=== PATIENT | female | born 1985 | race Caucasian/White ===

== ENCOUNTER 2022-03-28 16:56 | Inpatient (IN) ==
[2022-03-28] MEDS ORDERED: LIDOCAINE 1% LOCAL 20 ML VIAL INFIL PRN (17:22)
[2022-03-28] MEDS ORDERED: OXYTOCIN 30 UNITS/500 ML BAG IV PRN ×2 (17:22→18:22)
[2022-03-28 17:51] LABS: Hematocrit (blood only) 32.9 % (34.1-44.9); Hemoglobin 11.3 g/dl (12.0-16.0); Mean Corpuscular Hemoglobin 30.1 pg (25.0-34.0); Mean Corpuscular Hgb Conc 34.3 g/dL (32.0-36.0); Mean Corpuscular Volume 87.7 fL (80.0-100.0); Mean Platelet Volume 12.7 fL (9.4-12.3); Platelet Count 203 K/uL (130-400); RDW Coefficient of Variation 12.9 % (11.5-14.5); RDW Standard Deviation 40.1 fL (36.4-46.3); Red Blood Count 3.75 M/uL (3.93-5.22)
[2022-03-28] MEDS ORDERED: INSULIN REGULAR 250 UNITS in SODIUM CHLORIDE 0.9% 247.5 ML IV PRN (18:22)
[2022-03-28] MEDS ORDERED: SODIUM CHLORIDE 0.9% 1000ML 1,000 ML IV PRN (18:22)
[2022-03-28] MEDS ORDERED: DEXTROSE 5% 1,000 ML IV PRN (18:22)
[2022-03-28] MEDS ORDERED: DEXTROSE 50% 50 ML SYRINGE IV PRN (18:22)
[2022-03-28] MEDS: LACTATED RINGER'S 1,000 ML IV PRN ×2 (19:12→23:54)
--- NOTE | 2022-03-28 19:16 | History & Physical Report ---
Date of Service March 28, 2022 Assessment & Plan (1) Diabetes type 1, uncontrolled: (2) Diabetes mellitus affecting : Plan 36 y/o G1 at 39 4/7 wga presents for IOL [id number] VSS Fetus cat 1 Labor - will start with pit hilario, 35cc hilario placed after consent obtained. T1DM - due to being T1 and not on continuous pump, will start insulin protocol GBS neg epidural prn Admission and Anticipated Discharge Date Admission Date: March 28, 2022 History of Present Illness Chief Complaint: IOL Primary Care Provider: Eric Culp DO 36 y/o G1 at 39 4/7 wga presents for IOL for T1DM. 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: G1 09/2019 neg cytology Denies hx STIs Allergies Allergy/AdvReac Type Severity Reaction Status Date / Time No Known Allergies Allergy Verified 03/27/22 15:34 Home Medications Medication Instructions Recorded Confirmed Type glucagon HCl 1 mg solution for 1 mg IM UD PRN Emergency 02/04/21 03/28/22 History injection (Glucagon (HCl) Emergency Kit) blood-glucose sensor (Dexcom G6 #1 ea 03/22/21 03/27/22 Rx Sensor device) insulin aspart U-100 100 unit/mL See Rx Instructions subcut 06/26/21 03/28/22 Rx (3 mL) subcutaneous pen .complex #30 mL prenat.vits,ramon,[id number] 1 tab PO DAILY 08/09/21 03/28/22 History aspirin 81 mg tablet,delayed 81 mg PO DAILY 11/08/21 03/28/22 History release blood sugar diagnostic (OneTouch See Rx Instructions .Route 01/07/22 03/28/22 Rx Ultra Test strips) .COMPLEX #400 strips omeprazole 20 mg tablet,delayed 20 mg PO DAILY 02/06/22 03/28/22 History release insulin detemir U-100 100 unit/mL 60 unit (0.6 mL) subcut ONCE #15 mL 02/21/22 03/28/22 Rx (3 mL) subcutaneous pen (Levemir FlexTouch U-100 Insulin) pen needle, diabetic 32 gauge x 03/06/22 03/27/22 History 5/32" (BD Ailin 2nd Gen Pen Needle) Patient History Medical History Benign nevus Diabetes type 1, uncontrolled Diabetic ketoacidosis Diabetic peripheral neuropathy associated with type 1 diabetes mellitus Dysesthesia Epidermal inclusion cyst History of HPV infection Surgical History H/O LEEP H/O oral surgery Family History Aunt Breast cancer Sister Biliary atresia Mother Ovarian cyst Denies family history of Ovarian cancer Prostate cancer Diabetes Myocardial infarction Colorectal cancer Hypertension Social History (Updated 02/21/22 @ 13:59 by FALLON Horne) Smoking Status: Never smoker Second Hand Exposure: No; Hx Alcohol Use: No Hx Substance Use: No Preferred Language: [place] Irish Communication Ability: Effective Visual Impairment: No Limitations Hearing Ability: Normal Taproom Attendant Required: No Beliefs That Will Affect Care: None marital status: marital status details: Jermaine Torres (28) [phone] Current Living Situation: Spouse Current Living Situation Comment: - Jermaine current occupational status: employed 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 Feels Safe at Home: Yes Safety Concerns: Feels Safe At This Time Childhood Exposure to Second-Hand Smoke: No caffeine: No Dental Care, Regularly: Yes Physical Activity Frequency: Does not Exercise Seatbelt Use: sometimes Sunscreen Use: Yes Do you think of yourself as: straight/heterosexual Gender Identity: Female Assistive Devices: Glasses Physical Exam Genitourinary: OB Exam Abdomen: + vertex (confirmed by bsus) and + estimated weight (7-8lbs) Manual OB Exam: + cervical dilation 1 cm, + cervical effacement 50% and + station -2 OB Exam Monitor Tracing: + external FHT monitor used, + external uterine monitor used (irreg ctx) and + category I (135/mod/+accel/-decel) Results & Data ([facility]) Vital Signs (Past 12 Hours) Vital Signs Temp Pulse Resp BP O2 Del Method 03/28/22 17:23 98.1 F 94 H 18 116/75 Room Air 03/28/22 16:59 18 03/28/22 16:59 98.1 F 18 03/28/22 17:00 94 H 116/75 Laboratory Results Lab Results OB Labs: Blood Type A Positive 08/15/21 Antibody Screen NEGATIVE 08/15/21 Hemoglobin 12.3 g/dL (12.0-16.0) 08/15/21 Hematocrit 37.0 % (37-47) 08/15/21 Mean Corpuscular Volume 88.9 fL (80-100) 08/15/21 Platelet Count 403 K/uL (130-400) H 08/15/21 Rubella IgG Antibody Immune (Immune) 08/15/21 Rapid Plasma Reagin Nonreactive (Nonreactive) 08/15/21 Hepatitis B Surface Antigen Neg (Neg) 08/15/21 Hepatitis C Antibody Neg (Neg) 08/15/21 HIV (1&2) Ab and P24 Ag, 4th Gener Neg (Neg) 08/15/21 Maternal Serum Alpha Fetoprotein 23.2 ng/mL 10/10/21 OB Optional Labs: Chlamydia trachomatis RNA NOT DETECTED (NOT DETECTED) 08/15/21 Neisseria gonorrhoeae RNA NOT DETECTED (NOT DETECTED) 08/15/21 Thyroid Stimulating Hormone (TSH) 1.213 uIu/ml (0.300-4.500) 11/08/21 Alpha Fetoprotein Triple Screen SEE NOTE 10/10/21 Labs Reviewed: Declines csf/sma--mln Cfdna-low risk--mln gbs neg Diagnostic Findings 03/03 EFW 60% Coding Level of Care Code None Diagnoses Diabetes type 1, uncontrolled E10.65 Diabetes mellitus affecting O24.919
[2022-03-28] MEDS ORDERED: ePHEDrine sulfate 50 MG/ML AMP ONE (23:39)
[2022-03-28] MEDS ORDERED: fentaNYL 2MCG/ML ROPIVACAINE 1.25MG/ML 100 ML BAG EPI ONE (23:40)
[2022-03-28] MEDS ORDERED: fentaNYL citrate 100 MCG/2 ML VIAL ONE (23:40)
[2022-03-28] MEDS ORDERED: LIDOCAINE 2%/EPINEPHRINE 1:200,000 20 ML SDV ONE (23:40)
[2022-03-28] MEDS ORDERED: BUPIVACAINE 0.25% 30 ML VIAL ONE (23:40)
[2022-03-28] MEDS ORDERED: SODIUM CHLORIDE 0.9% INJ 10 ML VIAL ONE (23:40)
[2022-03-28] MEDS ORDERED: NALBUPHINE HCL INJ 10 MG/ML AMP IV PRN (23:48)
[2022-03-28] MEDS ORDERED: diphenhydrAMINE 50 MG/ML VIAL IV PRN (23:48)
[2022-03-28] MEDS ORDERED: NALOXONE HCL 0.4 MG/1 ML VIAL/CARP IV PRN (23:48)
[2022-03-28] MEDS ORDERED: ONDANSETRON INJ 2 MG/ML 2 ML VIAL IV PRN (23:48)
[2022-03-28] MEDS ORDERED: NALOXONE HCL 1 MG in SODIUM CHLORIDE 0.9% 1000ML 1,000 ML IV PRN (23:48)
[2022-03-28] MEDS ORDERED: ePHEDrine sulfate 50 MG/ML AMP IV PRN (23:48)
--- NOTE | 2022-03-28 23:50 | Anesthesiology Consultation ---
Date of Service March 28, 2022 Assessment & Plan Chart Review Chart Review: Patient NOT seen in Pre Admission Testing and Acceptable Risk for Labor Epidural Consults Requested none ASA ASA2 Proposed Anesthesia Anesthesia Type: Labor Epidural and CSE Risk / Benefits Reviewed With: PT / POA / Parent / Guardian, Accepts Plan and Informed Consent Obtained History Height/Weight Height: 5 ft 7 in Weight: 81.193 kg Allergies Allergy/AdvReac Type Severity Reaction Status Date / Time No Known Allergies Allergy Verified 03/27/22 15:34 Medications Home Medications Medication Instructions Recorded Confirmed Last Taken glucagon HCl 1 mg solution for 1 mg IM UD PRN Emergency 02/04/21 03/28/22 Unknown injection (Glucagon (HCl) Emergency Kit) blood-glucose sensor ([employer] G6 #1 ea 03/22/21 03/27/22 Unknown Sensor device) insulin aspart U-100 100 unit/mL See Rx Instructions subcut 06/26/21 03/28/22 03/28/22 14:30 (3 mL) subcutaneous pen .complex #30 mL prenat.vits,ramon,[id number] 1 tab PO DAILY 08/09/21 03/28/22 03/28/22 07:00 aspirin 81 mg tablet,delayed 81 mg PO DAILY 11/08/21 03/28/22 03/28/22 07:00 release blood sugar diagnostic (OneTouch See Rx Instructions .Route 01/07/22 03/28/22 08:00 Ultra Test strips) .COMPLEX #400 strips omeprazole 20 mg tablet,delayed 20 mg PO DAILY 02/06/22 03/28/22 03/28/22 07:00 release insulin detemir U-100 100 unit/mL 60 unit (0.6 mL) subcut ONCE #15 mL 02/21/22 03/28/22 03/28/22 07:00 (3 mL) subcutaneous pen (Levemir FlexTouch U-100 Insulin) pen needle, diabetic 32 gauge x 03/06/22 03/27/22 Unknown " (BD Ailin 2nd Gen Pen Needle) Active Medications Generic Name Dose Route Start Last Admin Trade Name Freq PRN Reason Stop Dose Admin Lactated Ringer's 1,000 mls @ 125 mls/hr 03/28/22 17:22 03/28/22 23:21 Lr IV 03/30/22 17:21 999 mls/hr .Q8H PRN Infusion L&D Protocol Protocol Oxytocin 30 units in 500 mls @ 8 mls/hr 03/28/22 18:22 03/28/22 23:20 Pitocin IV 03/30/22 18:21 0.6 units/hr .Q24H PRN 10 mls/hr Labor Induction/Augmentation Titration Protocol 0.48 UNITS/HR NPO Date Last Intake of Fluids: 03/28/22 Time Last Intake of Fluids: 20:00 Date Last Intake of Solids: 03/28/22 Time Last Intake of Solids: 18:00 Past Medical History Medical History Benign nevus Diabetes type 1, uncontrolled Diabetic ketoacidosis Diabetic peripheral neuropathy associated with type 1 diabetes mellitus Dysesthesia Epidermal inclusion cyst History of HPV infection Exercise / Class Metabolic Activity II 4-5 Yardwork/Stairs/Walk up hill Past Family History Family History Aunt Breast cancer Maternal Sister Biliary atresia Mother Ovarian cyst Denies family history of Ovarian cancer Prostate cancer Diabetes Myocardial infarction Colorectal cancer Hypertension Past Surgical History Surgical History H/O LEEP H/O oral surgery Past Anesthesia History No Hx of Anesthesia Complications and No Family Hx of Anesthesia Complications History of PONV No Hx of PONV and No Hx of Motion Sickness Social History Smoking Status: Never smoker Hx Alcohol Use: No Hx Substance Use: No substance use type: does not use Review of Systems no chest pain or sob Physical Exam Vital Signs Last Vital Signs Temp 36.9 C 03/28/22 23:02 Pulse 86 03/28/22 23:46 Resp 18 03/28/22 23:02 BP 110/62 03/28/22 23:03 Pulse Ox 100 03/28/22 23:46 O2 Del Method 03/28/22 17:23 ENMT Mouth: no TMJ abnormality Thyromental Distance: > or= 3.5 Finger Breadths Mallampati Class: II Neck normal visual inspection Respiratory normal respiratory effort Auscultation: lungs clear to auscultation bilaterally Cardiovascular Rate/Rhythm: regular rate and regular rhythm Musculoskeletal Spine: normal cervical ROM Neurologic moves all extremities Psychiatric Orientation: alert and oriented x 3 Testing Laboratory Results 03/28/22 17:37 03/28/22 03/28/22 03/28/22 23:05 23:04 22:03 POC Glucose 61 L* 66 L* 76 03/28/22 03/28/22 03/28/22 21:03 20:03 19:33 POC Glucose 76 77 69 L* 03/28/22 03/28/22 19:32 18:16 POC Glucose 67 L* 82
--- NOTE | 2022-03-29 01:10 | Labor Progress Brief Note ---
Date of Service March 29, 2022 Subjective hilario bulb out, pt w/ epidural and comfortable Assessment & Plan (1) Diabetes type 1, uncontrolled: (2) Diabetes mellitus affecting : Plan 36 y/o G1 at 39 4/7 wga presents for IOL [id number] VSS Fetus cat 1 Labor - continue pit induction T1DM - insulin protocol ordered, BG doing well GBS neg epidural in place Admission and Anticipated Discharge Date Admission Date: March 28, 2022 Physical Exam Genitourinary: Manual OB Exam: + cervical dilation 4 cm, + cervical effacement 50%, + station -2 and + amniotic fluid (SROM w/ mec) OB Exam Monitor Tracing: + external FHT monitor used, + external uterine monitor used (q3-4) and + category I (120/mod/+accel/-decel) Results & Data ([facility]) Vital Signs (Past 12 Hours) Vital Signs Temp Pulse Resp BP Pulse Ox O2 Del Method 03/28/22 17:23 98.1 F 94 H 18 116/75 Room Air 03/29/22 01:07 93 H 111/62 03/29/22 01:06 91 H 100 03/29/22 01:01 92 H 100 03/29/22 00:56 96 H 100 03/29/22 00:51 84 98 03/29/22 00:46 83 99 03/29/22 00:47 81 100/57 L 03/29/22 00:45 18 03/29/22 00:45 18 03/29/22 00:41 83 100 03/29/22 00:42 82 101/57 L 03/29/22 00:30 18 03/29/22 00:30 18 03/29/22 00:37 90 106/62 03/29/22 00:36 86 99 03/29/22 00:33 85 101/57 L 03/29/22 00:31 87 100 03/28/22 23:52 18 03/28/22 23:52 18 03/29/22 00:07 18 03/29/22 00:07 18 03/29/22 00:26 88 100 03/29/22 00:27 87 100/59 L 03/29/22 00:21 90 105/55 L 100 03/29/22 00:19 96 H 112/62 03/29/22 00:17 93 H 105/53 L 03/29/22 00:16 100 03/29/22 00:16 92 H 03/29/22 00:16 93 H 102/55 L 03/29/22 00:13 89 111/58 L 03/29/22 00:11 96 H 100 03/29/22 00:10 96 H 114/57 L 03/29/22 00:09 94 H 94 03/29/22 00:06 100 H 100 03/29/22 00:01 99 H 99 03/28/22 23:59 91 03/28/22 23:59 100 H 03/28/22 23:56 100 03/28/22 23:56 101 H 03/28/22 23:51 99 03/28/22 23:51 98 H 03/28/22 23:46 100 03/28/22 23:46 86 03/28/22 23:41 100 03/28/22 23:41 87 03/28/22 23:36 100 03/28/22 23:36 84 03/28/22 23:31 100 03/28/22 23:31 90 03/28/22 23:02 18 03/28/22 23:02 98.4 F 18 03/28/22 23:03 86 03/28/22 23:03 110/62 03/28/22 22:02 90 03/28/22 22:02 107/66 03/28/22 21:02 90 03/28/22 21:02 128/84 03/28/22 20:02 87 03/28/22 20:02 114/70 03/28/22 19:16 18 03/28/22 19:16 98.1 F 18 03/28/22 19:17 88 03/28/22 19:17 104/68 03/28/22 16:59 18 03/28/22 16:59 98.1 F 18 03/28/22 17:00 94 H 116/75 Coding Level of Care Code None Diagnoses Diabetes type 1, uncontrolled E10.65 Diabetes mellitus affecting O24.919
[2022-03-29] MEDS: LACTATED RINGER'S 1,000 ML IV PRN ×4 (02:45→13:19)
--- NOTE | 2022-03-29 07:32 | Labor Progress Brief Note ---
Date of Service March 29, 2022 Subjective Called by nursing due to low baseline. Had been given ephedrine due to maternal BP being low, moderate variability throughout, early decels were noted. Pitocin had been turned off earlier in the night due to decels and just been restarted. Assessment & Plan (1) Diabetes type 1, uncontrolled: (2) Diabetes mellitus affecting : Plan 36 y/o G1 at 39 4/7 wga presents for IOL [id number] VSS Fetus cat 1 Labor - pitocin was turned off for decels earlier and then paused due to the low baseline. FSE was applied but unable to get a clear read. SVE is about 4-5cm, effacement with progress. Maternal repositioning did improve so will start pit again T1DM - insulin protocol ordered, BG doing well GBS neg epidural in place Admission and Anticipated Discharge Date Admission Date: March 28, 2022 Physical Exam Genitourinary: Manual OB Exam: + cervical dilation 4 cm, + cervical effacement 50% and + station -2 OB Exam Monitor Tracing: + external FHT monitor used, + external uterine monitor used (q3-5) and + category II (100-110/mod/-accel/early, rare late decel - FSE attempted but not working) Results & Data ([facility]) Vital Signs (Past 12 Hours) Vital Signs Temp Pulse Resp BP Pulse Ox 03/29/22 07:26 84 100 03/29/22 07:23 87 105/73 03/29/22 07:21 87 99 03/29/22 07:16 85 100 03/29/22 07:11 87 100 03/29/22 07:06 97 H 100 03/29/22 07:01 91 H 100 03/29/22 06:56 90 100 03/29/22 06:51 88 100 03/29/22 06:52 88 120/71 03/29/22 06:46 87 100 03/29/22 06:41 87 100 03/29/22 06:37 86 121/74 03/29/22 06:36 88 100 03/29/22 06:31 88 100 03/29/22 06:26 90 100 03/29/22 06:22 90 123/80 03/29/22 06:21 92 H 100 03/29/22 06:16 89 100 03/29/22 06:11 91 H 100 03/29/22 06:06 93 H 100 03/29/22 06:01 94 H 100 03/29/22 05:56 100 H 100 03/29/22 05:53 96 H 109/69 03/29/22 05:51 99 H 100 03/29/22 05:46 95 H 99 03/29/22 05:41 107 H 100 03/29/22 05:38 105 H 102/67 03/29/22 05:36 104 H 100 03/29/22 05:31 105 H 100 03/29/22 05:26 101 H 99 03/29/22 05:23 104 H 112/77 03/29/22 05:21 110 H 99 03/29/22 05:18 86 114/76 03/29/22 05:16 85 99 03/29/22 05:11 93 H 99 03/29/22 05:12 90 88/60 L 03/29/22 05:08 86 03/29/22 05:08 89/60 L 03/29/22 05:07 82 91/58 L 03/29/22 05:08 83 87/60 L 03/29/22 05:06 97.5 F L 82 18 97 03/29/22 03:30 18 03/29/22 03:30 18 03/29/22 04:00 18 03/29/22 04:00 18 03/29/22 04:30 18 03/29/22 04:30 18 03/29/22 01:30 18 03/29/22 01:30 18 03/29/22 02:00 18 03/29/22 02:00 18 03/29/22 02:30 18 03/29/22 02:30 18 03/29/22 03:00 18 03/29/22 03:00 18 03/29/22 05:01 78 98 03/29/22 04:56 70 98 03/29/22 04:51 75 98 03/29/22 04:52 74 107/62 03/29/22 04:46 79 98 03/29/22 04:41 76 97 03/29/22 04:38 75 115/68 03/29/22 04:36 81 100 03/29/22 04:31 81 97 03/29/22 04:26 79 97 03/29/22 04:21 80 97 03/29/22 04:22 81 101/63 03/29/22 04:16 82 97 03/29/22 04:11 82 97 03/29/22 04:06 79 96 03/29/22 04:07 77 108/66 03/29/22 04:01 83 97 03/29/22 03:56 79 98 03/29/22 03:52 78 115/69 03/29/22 03:51 79 97 03/29/22 03:46 78 98 03/29/22 03:41 77 98 03/29/22 03:36 78 97 03/29/22 03:37 79 112/72 03/29/22 03:31 79 97 03/29/22 03:26 81 97 03/29/22 03:22 78 108/71 03/29/22 03:21 80 98 03/29/22 03:16 81 100 03/29/22 03:11 81 100 03/29/22 03:08 78 118/74 03/29/22 03:06 80 100 03/29/22 03:01 83 100 03/29/22 02:56 82 100 03/29/22 02:52 82 132/78 03/29/22 02:51 83 100 03/29/22 02:46 82 100 03/29/22 02:41 83 100 03/29/22 02:36 87 100 03/29/22 02:37 89 102/67 03/29/22 02:31 86 100 03/29/22 02:26 88 100 03/29/22 02:23 85 105/68 03/29/22 02:21 85 100 03/29/22 02:16 86 100 03/29/22 02:11 83 100 03/29/22 02:06 85 100 03/29/22 02:07 77 114/75 03/29/22 02:01 85 100 03/29/22 01:56 86 100 03/29/22 01:51 88 100 03/29/22 01:52 87 115/73 03/29/22 01:46 85 100 03/29/22 01:41 87 100 03/29/22 01:37 85 115/73 03/29/22 01:36 87 100 03/29/22 01:31 88 100 03/29/22 01:26 92 H 100 03/29/22 01:23 91 H 110/69 03/29/22 01:21 83 100 03/29/22 01:00 18 03/29/22 01:00 97.9 F 18 03/29/22 01:16 88 100 03/29/22 01:11 90 100 03/29/22 01:07 93 H 111/62 03/29/22 01:06 91 H 100 03/29/22 01:01 92 H 100 03/29/22 00:56 96 H 100 03/29/22 00:51 84 98 03/29/22 00:46 83 99 03/29/22 00:47 81 100/57 L 03/29/22 00:45 18 03/29/22 00:45 18 03/29/22 00:41 83 100 03/29/22 00:42 82 101/57 L 03/29/22 00:30 18 03/29/22 00:30 18 03/29/22 00:37 90 106/62 03/29/22 00:36 86 99 03/29/22 00:33 85 101/57 L 03/29/22 00:31 87 100 03/28/22 23:52 18 03/28/22 23:52 18 03/29/22 00:07 18 03/29/22 00:07 18 03/29/22 00:26 88 100 03/29/22 00:27 87 100/59 L 03/29/22 00:21 90 105/55 L 100 03/29/22 00:19 96 H 112/62 03/29/22 00:17 93 H 105/53 L 03/29/22 00:16 100 03/29/22 00:16 92 H 03/29/22 00:16 93 H 102/55 L 03/29/22 00:13 89 111/58 L 03/29/22 00:11 96 H 100 03/29/22 00:10 96 H 114/57 L 03/29/22 00:09 94 H 94 03/29/22 00:06 100 H 100 03/29/22 00:01 99 H 99 03/28/22 23:59 91 03/28/22 23:59 100 H 03/28/22 23:56 100 03/28/22 23:56 101 H 03/28/22 23:51 99 03/28/22 23:51 98 H 03/28/22 23:46 100 03/28/22 23:46 86 03/28/22 23:41 100 03/28/22 23:41 87 03/28/22 23:36 100 03/28/22 23:36 84 03/28/22 23:31 100 03/28/22 23:31 90 03/28/22 23:02 18 03/28/22 23:02 98.4 F 18 03/28/22 23:03 86 03/28/22 23:03 110/62 03/28/22 22:02 90 03/28/22 22:02 107/66 03/28/22 21:02 90 03/28/22 21:02 128/84 03/28/22 20:02 87 03/28/22 20:02 114/70 Coding Level of Care Code None Diagnoses Diabetes type 1, uncontrolled E10.65 Diabetes mellitus affecting O24.919
--- NOTE | 2022-03-29 08:59 | Communication Note ---
Date of Service: March 29, [address] Sanchez, and transfer of care at bedside with introduction to patient. I have reviewed the course of her labor thus far and t he FHT tracing over the course of her admission, with Dr. Sanchez. Though baseline has at times been low, variability is reassuring, and scalp stim response obtained with placement of FSE / exams also contributes to reassurance. Pit currently at 4mu/min, last exam of cervix less than 2 hours prior and contraction pattern not yet reached a Q2-3min stable pattern, so exam deferred at this time. T1DM has been managed with insulin/glucose IV protocol. So far, low sugars have been more of an issue than high ones, so thus far no insulin was being started at the 80-100 range to avoid hypoglycemic events. Recent maternal temp registering very low on thermometer though patient does not feel subjectively chilled, and I wonder if this is contributing to her low baseline FHR? Warm blankets provided by nursing, and warm drink suggested, though patient was not interested in a warm drink at this time. Will continue the plan of care and anticipate an unless status or labor course dictate otherwise over the coming hours.
[2022-03-29] MEDS: fentaNYL 2MCG/ML ROPIVACAINE 1.25MG/ML 100 ML BAG EPI PRN ×2 (09:26→16:16)
[2022-03-29] MEDS ORDERED: INSULIN REGULAR 250 UNITS in SODIUM CHLORIDE 0.9% 247.5 ML IV PRN (15:05)
[2022-03-29] MEDS ORDERED: INSULIN DETEMIR PER UNIT CHARGE SC ONE (15:15)
--- NOTE | 2022-03-29 15:40 | Labor Progress Brief Note ---
Date of Service March 29, 2022 Subjective Patient c/o ongoing shaking, nausea. Discussed that these are the same symptoms she has when she forgets to use her long-acting insulin at home. She was concerned because she was not given and did not take her Levemir this morning either. Feeling some pelvic pressure but only with ctx, unchanged from before. Assessment & Plan (1) 38 weeks gestation of : Plan: Induction of labor due to T1DM. Patient notes that she has her current symptoms when she is off her long-acting insulin. Although shaking and nausea are commonly seen in late 1st stage labor, they are also signs of hypoglycemia or DKA. She has had normal BG values today. She also, I discover, has a CGM despite my explicitly being told she does not have one this morning. I was able to look at the CGM chart in her phone and confirm her highest recent value was around 290 and that was 5pm yesterday; since arriving to L&D she has been near 100 at all times with no spikes far from that range. This makes DKA or severe hypo/hyperglycemia very unlikely. She also covered her meals with short-acting at home yesterday, and took her usual Levemir 60u yesterday morning, prior to arriving her around 6pm yesterday. Since then, PO intake has been limited and sugar has been checked with a fingerstick hourly. D5LR and insulin GTT used per protocol to adjust for any [id number]-range values. We will give 30u levemir now, half her usual dose, to provide basal and avoid pushing her low since hypoglycemia was her earlier trend and is more concerning than mild acute hyperglycemia, plus she is about to face either pushing or potentially a . Will restart pitocin and then assess tolerance and guide towards delivery of whatever type once levemir on board and patient has a chance to feel its effects, if it offers any improvement in her nausea and shakes. Admission and Anticipated Discharge Date Admission Date: March 28, 2022 Physical Exam Genitourinary: 8 with swollen ant lip (same as my own last exam)/0 Pit off - confirmed with RN it was never turned back on after my visit with patient while DIMITRIOS Anderson was at lunch and covering nurses were present, around 1pm. Had it turned back on at half prior level (was at 10, so 5...) and rapidly developed a q2-3 pattern but with late decel after every contraction. Pit turned back off. Results & Data ([facility]) Vital Signs (Past 12 Hours) Vital Signs Temp Pulse Resp BP Pulse Ox 03/29/22 15:23 102 H 138/79 03/29/22 15:21 102 H 100 03/29/22 15:16 107 H 100 03/29/22 15:11 102 H 98 03/29/22 15:06 103 H 100 03/29/22 15:07 101 H 127/59 L 03/29/22 15:01 96 H 100 03/29/22 14:56 112 H 100 03/29/22 14:54 55 L 124/87 03/29/22 14:51 94 H 100 03/29/22 14:46 107 H 100 03/29/22 14:41 103 H 100 03/29/22 14:36 104 H 100 03/29/22 14:37 103 H 128/85 03/29/22 14:31 109 H 95 03/29/22 14:26 99 H 100 03/29/22 14:23 103 H 98/63 L 03/29/22 14:21 99 H 100 03/29/22 14:16 95 H 100 03/29/22 14:11 97 H 100 03/29/22 14:09 100 H 100/68 03/29/22 14:06 103 H 100 03/29/22 14:01 100 H 100 03/29/22 13:56 104 H 100 03/29/22 13:51 103 H 100 03/29/22 13:52 104 H 98/63 L 03/29/22 13:46 93 H 100 03/29/22 13:41 96 H 100 03/29/22 13:38 102 H 102/64 03/29/22 13:36 98 H 100 03/29/22 13:31 102 H 100 03/29/22 13:30 106 H 18 85 L 03/29/22 13:26 98 H 100 03/29/22 13:22 104 H 123/75 03/29/22 13:21 98 H 100 03/29/22 13:16 99 H 100 03/29/22 13:11 92 H 100 03/29/22 13:06 93 H 100 03/29/22 13:07 94 H 127/79 03/29/22 13:01 93 H 100 03/29/22 12:56 97 H 100 03/29/22 12:53 104 H 117/78 03/29/22 12:51 101 H 100 03/29/22 12:46 119 H 100 03/29/22 12:42 100 H 84 L 03/29/22 12:41 102 H 100 03/29/22 12:38 108 H 124/53 L 03/29/22 12:36 103 H 98 03/29/22 12:31 100 H 100 03/29/22 12:26 98 H 100 03/29/22 12:24 107 H 84 L 03/29/22 12:22 100 H 130/68 03/29/22 12:21 98 H 100 03/29/22 12:16 97 H 100 03/29/22 12:11 95 H 100 03/29/22 12:07 96 H 121/59 L 03/29/22 12:06 94 H 100 03/29/22 12:03 98 H 86 L 03/29/22 12:01 100 H 100 03/29/22 11:56 100 H 100 03/29/22 11:51 97 H 100 03/29/22 11:49 100 H 85 L 03/29/22 11:46 98 H 99 03/29/22 11:41 98 H 100 03/29/22 11:32 20 03/29/22 11:32 20 03/29/22 11:36 98 H 100 03/29/22 11:31 95 H 99 03/29/22 11:26 90 100 03/29/22 11:22 89 135/65 03/29/22 11:21 88 99 03/29/22 11:16 88 99 03/29/22 11:11 87 100 03/29/22 11:06 86 100 03/29/22 11:07 86 132/82 03/29/22 11:00 16 03/29/22 11:00 16 03/29/22 11:01 86 100 03/29/22 10:56 86 100 03/29/22 10:53 87 132/76 03/29/22 10:30 18 03/29/22 10:30 18 03/29/22 10:51 87 100 03/29/22 10:46 89 100 03/29/22 10:41 90 100 03/29/22 10:38 87 137/62 03/29/22 10:36 86 100 03/29/22 10:31 81 100 03/29/22 10:26 79 100 03/29/22 10:23 78 118/64 03/29/22 10:21 79 100 03/29/22 10:16 79 100 03/29/22 10:11 79 100 03/29/22 10:06 79 100 03/29/22 10:07 78 107/58 L 03/29/22 10:00 18 03/29/22 10:00 18 03/29/22 10:01 79 100 03/29/22 09:56 82 100 03/29/22 09:52 83 119/69 03/29/22 09:51 83 100 03/29/22 09:46 97.5 F L 81 100 03/29/22 09:41 83 100 03/29/22 09:38 83 118/80 03/29/22 09:30 18 03/29/22 09:30 18 03/29/22 09:36 80 100 03/29/22 09:31 86 100 03/29/22 09:26 87 100 03/29/22 09:23 82 123/79 03/29/22 09:21 82 100 03/29/22 09:16 83 100 03/29/22 09:11 85 100 03/29/22 09:00 18 03/29/22 09:00 18 03/29/22 09:09 86 104/62 03/29/22 09:08 91 H 86 L 03/29/22 09:06 84 100 03/29/22 08:29 18 03/29/22 08:29 18 03/29/22 09:01 85 100 03/29/22 08:56 97.5 F L 87 100 03/29/22 08:52 84 109/76 03/29/22 08:51 86 97 03/29/22 08:46 85 100 03/29/22 08:41 88 100 03/29/22 08:38 86 126/77 03/29/22 08:36 86 100 03/29/22 08:35 88 18 88 L 03/29/22 08:31 83 100 03/29/22 08:26 83 100 03/29/22 08:21 84 100 03/29/22 08:22 84 114/78 03/29/22 08:16 88 100 03/29/22 08:11 85 100 03/29/22 08:08 84 112/76 03/29/22 08:06 84 100 03/29/22 08:01 86 100 03/29/22 07:56 84 100 03/29/22 07:53 85 116/76 03/29/22 07:54 85 117/75 03/29/22 07:51 85 100 03/29/22 07:46 86 100 03/29/22 07:41 86 100 03/29/22 07:39 83 127/81 03/29/22 07:36 85 100 03/29/22 07:31 84 100 03/29/22 07:26 84 100 03/29/22 07:23 87 105/73 03/29/22 07:21 87 99 03/29/22 07:16 85 100 03/29/22 07:11 87 100 03/29/22 07:06 97 H 100 03/29/22 07:01 91 H 100 03/29/22 06:56 90 100 03/29/22 06:51 88 100 03/29/22 06:52 88 120/71 03/29/22 06:46 87 100 03/29/22 06:41 87 100 03/29/22 06:37 86 121/74 03/29/22 06:36 88 100 03/29/22 06:31 88 100 03/29/22 06:26 90 100 03/29/22 06:22 90 123/80 03/29/22 06:21 92 H 100 03/29/22 06:16 89 100 03/29/22 06:11 91 H 100 03/29/22 06:06 93 H 100 03/29/22 06:01 94 H 100 03/29/22 05:56 100 H 100 03/29/22 05:53 96 H 109/69 03/29/22 05:51 99 H 100 03/29/22 05:46 95 H 99 03/29/22 05:41 107 H 100 03/29/22 05:38 105 H 102/67 03/29/22 05:36 104 H 100 03/29/22 05:31 105 H 100 03/29/22 05:26 101 H 99 03/29/22 05:23 104 H 112/77 09/17/22 05:21 110 H 99 03/29/22 05:18 86 114/76 03/29/22 05:16 85 99 03/29/22 05:11 93 H 99 03/29/22 05:12 90 88/60 L 03/29/22 05:08 86 03/29/22 05:08 89/60 L 03/29/22 05:07 82 91/58 L 03/29/22 05:08 83 87/60 L 03/29/22 05:06 97.5 F L 82 18 97 03/29/22 03:30 18 03/29/22 03:30 18 03/29/22 04:00 18 03/29/22 04:00 18 03/29/22 04:30 18 03/29/22 04:30 18 03/29/22 05:01 78 98 03/29/22 04:56 70 98 03/29/22 04:51 75 98 03/29/22 04:52 74 107/62 03/29/22 04:46 79 98 03/29/22 04:41 76 97 03/29/22 04:38 75 115/68 03/29/22 04:36 81 100 03/29/22 04:31 81 97 03/29/22 04:26 79 97 03/29/22 04:21 80 97 03/29/22 04:22 81 101/63 03/29/22 04:16 82 97 03/29/22 04:11 82 97 03/29/22 04:06 79 96 03/29/22 04:07 77 108/66 03/29/22 04:01 83 97 03/29/22 03:56 79 98 03/29/22 03:52 78 115/69 03/29/22 03:51 79 97 03/29/22 03:46 78 98 03/29/22 03:41 77 98 03/29/22 03:36 78 97 03/29/22 03:37 79 112/72 03/29/22 03:31 79 97 Coding Level of Care Code None Diagnoses 38 weeks gestation of Z3A.38
--- NOTE | 2022-03-29 18:20 | Labor Progress Brief Note ---
Date of Service March 29, 2022 Subjective Patient got improvement but not full relief of shaking/nausea after levemir and 30 min to allow effect. BG remained 120's. Nurse Mariela was assisted by Deanna Lopez to identify the correct levels of D5W and insulin gtt rate for this level, and requested it from pharmacy, but it was not received on our floor for quite some time due to hospital tube system being down. As of this writing it had still not arrived; I just spoke personally to a staff member in pharmacy who is now going to walk it up physically and personally to our hernandez. Patient had begun to feel more pelvic pain with contractions after pit was restarted, and FHT were noted to resume deep late decels. She was still not completely dilated. This was discussed with patient and FOB, who were notified that I recommended we proceed to . They were given time to discuss, and patient wished to resume pitocin again and continue trying to induce labor, as she had been hoping for natural and was not ready to change plan to . She had just had emesis as well, for large volume brownish liquid per RN Mariela. We resumed pitocin, but again late recurrent decels also resumed. I then returned back to the room and discussed with patient and FOB, who were at this point agreeable to . She remained 9cm, with molding noted and discussed with patient and FOB, as well as continued presence of meconium (as noted at time of original ROM). She was also experiencing more pain with contractions and requesting anesthesia, which we discussed would be deepened as part of preparation for delivery. Consent reviewed line by line including impact on future pregnancies and possible TOLAC/ risks, and all questions answered of patient and FOB. Assessment & Plan Admission and Anticipated Discharge Date Admission Date: March 28, 2022 Results & Data ([facility]) Vital Signs (Past 12 Hours) Vital Signs Temp Pulse Resp BP Pulse Ox 03/29/22 18:11 110 H 100 03/29/22 18:07 106 H 138/78 03/29/22 18:06 105 H 100 03/29/22 18:01 108 H 100 03/29/22 17:56 109 H 99 03/29/22 17:53 105 H 147/83 H 03/29/22 17:51 110 H 100 03/29/22 17:46 109 H 100 03/29/22 17:41 113 H 100 03/29/22 17:36 111 H 100 03/29/22 17:31 112 H 100 03/29/22 17:29 110 H 86 L 03/29/22 17:26 111 H 100 03/29/22 17:21 108 H 100 03/29/22 17:22 110 H 118/79 03/29/22 17:16 112 H 99 03/29/22 17:11 109 H 100 03/29/22 17:07 115 H 123/79 03/29/22 17:06 109 H 100 03/29/22 17:01 106 H 100 03/29/22 16:56 102 H 100 03/29/22 16:51 107 H 100 03/29/22 16:52 108 H 115/75 03/29/22 16:46 104 H 100 03/29/22 16:41 106 H 100 03/29/22 16:36 104 H 100 03/29/22 16:37 103 H 129/74 03/29/22 16:31 108 H 100 03/29/22 16:26 113 H 99 03/29/22 16:21 107 H 100 03/29/22 16:22 112 H 134/69 03/29/22 16:16 106 H 100 03/29/22 16:11 103 H 100 03/29/22 16:06 102 H 100 03/29/22 16:07 101 H 121/82 03/29/22 15:59 18 03/29/22 15:59 18 03/29/22 16:01 102 H 100 03/29/22 14:59 18 03/29/22 14:59 18 03/29/22 15:56 101 H 100 03/29/22 15:53 101 H 117/77 03/29/22 15:51 102 H 100 03/29/22 15:46 101 H 100 03/29/22 15:41 103 H 99 03/29/22 15:36 101 H 100 03/29/22 15:37 102 H 114/70 03/29/22 15:31 99 H 100 03/29/22 15:26 100 H 100 03/29/22 15:25 98.1 F 03/29/22 15:23 102 H 138/79 03/29/22 15:21 102 H 100 03/29/22 15:16 107 H 100 03/29/22 15:11 102 H 98 03/29/22 15:06 103 H 100 03/29/22 15:07 101 H 127/59 L 03/29/22 15:01 96 H 100 03/29/22 14:56 112 H 100 03/29/22 14:54 55 L 124/87 03/29/22 14:51 94 H 100 03/29/22 14:46 107 H 100 03/29/22 14:41 103 H 100 03/29/22 14:36 104 H 100 03/29/22 14:37 103 H 128/85 03/29/22 14:31 109 H 95 03/29/22 14:26 99 H 100 03/29/22 14:23 103 H 98/63 L 03/29/22 14:21 99 H 100 03/29/22 14:16 95 H 100 03/29/22 14:11 97 H 100 03/29/22 14:09 100 H 100/68 03/29/22 14:06 103 H 100 03/29/22 14:01 100 H 100 03/29/22 13:56 104 H 100 03/29/22 13:51 103 H 100 03/29/22 13:52 104 H 98/63 L 03/29/22 13:46 93 H 100 03/29/22 13:41 96 H 100 03/29/22 13:38 102 H 102/64 03/29/22 13:36 98 H 100 03/29/22 13:31 102 H 100 03/29/22 13:30 106 H 18 85 L 03/29/22 13:26 98 H 100 03/29/22 13:22 104 H 123/75 03/29/22 13:21 98 H 100 03/29/22 13:16 99 H 100 03/29/22 13:11 92 H 100 03/29/22 13:06 93 H 100 03/29/22 13:07 94 H 127/79 03/29/22 13:01 93 H 100 03/29/22 12:56 97 H 100 03/29/22 12:53 104 H 117/78 03/29/22 12:51 101 H 100 03/29/22 12:46 119 H 100 03/29/22 12:42 100 H 84 L 03/29/22 12:41 102 H 100 03/29/22 12:38 108 H 124/53 L 03/29/22 12:36 103 H 98 03/29/22 12:31 100 H 100 03/29/22 12:26 98 H 100 03/29/22 12:24 107 H 84 L 03/29/22 12:22 100 H 130/68 03/29/22 12:21 98 H 100 03/29/22 12:16 97 H 100 03/29/22 12:11 95 H 100 03/29/22 12:07 96 H 121/59 L 03/29/22 12:06 94 H 100 03/29/22 12:03 98 H 86 L 03/29/22 12:01 100 H 100 03/29/22 11:56 100 H 100 03/29/22 11:51 97 H 100 03/29/22 11:49 100 H 85 L 03/29/22 11:46 98 H 99 03/29/22 11:41 98 H 100 03/29/22 11:32 20 03/29/22 11:32 20 03/29/22 11:36 98 H 100 03/29/22 11:31 95 H 99 03/29/22 11:26 90 100 03/29/22 11:22 89 135/65 03/29/22 11:21 88 99 03/29/22 11:16 88 99 03/29/22 11:11 87 100 03/29/22 11:06 86 100 03/29/22 11:07 86 132/82 03/29/22 11:00 16 03/29/22 11:00 16 03/29/22 11:01 86 100 03/29/22 10:56 86 100 03/29/22 10:53 87 132/76 03/29/22 10:30 18 03/29/22 10:30 18 03/29/22 10:51 87 100 03/29/22 10:46 89 100 03/29/22 10:41 90 100 03/29/22 10:38 87 137/62 03/29/22 10:36 86 100 03/29/22 10:31 81 100 03/29/22 10:26 79 100 03/29/22 10:23 78 118/64 03/29/22 10:21 79 100 03/29/22 10:16 79 100 03/29/22 10:11 79 100 03/29/22 10:06 79 100 03/29/22 10:07 78 107/58 L 03/29/22 10:00 18 03/29/22 10:00 18 03/29/22 10:01 79 100 03/29/22 09:56 82 100 03/29/22 09:52 83 119/69 03/29/22 09:51 83 100 03/29/22 09:46 97.5 F L 81 100 03/29/22 09:41 83 100 03/29/22 09:38 83 118/80 03/29/22 09:30 18 03/29/22 09:30 18 03/29/22 09:36 80 100 03/29/22 09:31 86 100 03/29/22 09:26 87 100 03/29/22 09:23 82 123/79 03/29/22 09:21 82 100 03/29/22 09:16 83 100 03/29/22 09:11 85 100 03/29/22 09:00 18 03/29/22 09:00 18 03/29/22 09:09 86 104/62 03/29/22 09:08 91 H 86 L 03/29/22 09:06 84 100 03/29/22 08:29 18 03/29/22 08:29 18 03/29/22 09:01 85 100 03/29/22 08:56 97.5 F L 87 100 03/29/22 08:52 84 109/76 03/29/22 08:51 86 97 03/29/22 08:46 85 100 03/29/22 08:41 88 100 03/29/22 08:38 86 126/77 03/29/22 08:36 86 100 03/29/22 08:35 88 18 88 L 03/29/22 08:31 83 100 03/29/22 08:26 83 100 03/29/22 08:21 84 100 03/29/22 08:22 84 114/78 03/29/22 08:16 88 100 03/29/22 08:11 85 100 03/29/22 08:08 84 112/76 03/29/22 08:06 84 100 03/29/22 08:01 86 100 03/29/22 07:56 84 100 03/29/22 07:53 85 116/76 03/29/22 07:54 85 117/75 03/29/22 07:51 85 100 03/29/22 07:46 86 100 03/29/22 07:41 86 100 03/29/22 07:39 83 127/81 03/29/22 07:36 85 100 03/29/22 07:31 84 100 03/29/22 07:26 84 100 03/29/22 07:23 87 105/73 03/29/22 07:21 87 99 03/29/22 07:16 85 100 03/29/22 07:11 87 100 03/29/22 07:06 97 H 100 03/29/22 07:01 91 H 100 03/29/22 06:56 90 100 03/29/22 06:51 88 100 03/29/22 06:52 88 120/71 03/29/22 06:46 87 100 03/29/22 06:41 87 100 03/29/22 06:37 86 121/74 03/29/22 06:36 88 100 03/29/22 06:31 88 100 03/29/22 06:26 90 100 03/29/22 06:22 90 123/80 03/29/22 06:21 92 H 100 03/29/22 06:16 89 100 Coding Level of Care Code None
[2022-03-29] MEDS ORDERED: CITRIC ACID/SODIUM CITRATE 15 ML UDC ONE (18:21)
[2022-03-29] MEDS ORDERED: ceFAZolin 2000MG 2,000 MG/15 ML SYR IV SCH (18:25)
[2022-03-29] MEDS ORDERED: LACTATED RINGER'S 1,000 ML IV SCH ×2 (18:30→21:38)
[2022-03-29] MEDS ORDERED: LIDOCAINE 2%/EPINEPHRINE 1:200,000 20 ML SDV ONE (18:40)
[2022-03-29] MEDS ORDERED: OXYTOCIN 10 UNITS/ML VIAL ONE (18:40)
[2022-03-29] MEDS ORDERED: fentaNYL citrate 100 MCG/2 ML VIAL ONE (20:16)
--- NOTE | 2022-03-29 20:21 | Labor Progress Brief Note ---
Date of Service March 29, 2022 Subjective Patient was examined to remove the scalp electrode prior to moving back to OR for CSec. At that time was found to have a minimal anterior lip, was beginning a contraction, and the lip reduced easily during contraction. I asked her for a test push and she produced impressive descent with test push. At that time I discussed with patient and FOB that I would allow a trial of second stage if they desired, however, the FHT were Cat 2 and pushing would represent additional stress on the fetus. If she was able to push well, she might be able to have the vaginal delivery which she very much wanted. If she was not going to be able to deliver relatively quickly, I did not expect her fetus to tolerate that, and I would not recommend we try for it. She wished to try pushing. She was able to bring the fetus from +1 to +2 station, and we allowed the contraction pattern to remain Q4-5min and without pitocin as there was tolerance of pushing. She continued to bring fetus down until she was showing a silver-dollar amount of scalp between her labia with contractions, however the vertex retreated to +2 between pushes. She began to complain of fatigue, push efforts were less effective, and she was unable to bring the baby down lower. DIMITRIOS Hooker asked at the bedside if I "would consider a vacuum." I replied that I had been giving it thought but I had concerns about vacuum due to the issues with macrosomia in diabetic patients. I then discussed the risks of operative delivery with either vacuum or forceps with patient and FOB. We also discussed the option to go back to a section. The patient wanted to continue pushing. However a few pushes later she said "I can't," and declined to make further pushing effort. She asked if I would offer a vacuum and I said if she can't push there is no chance of success. She said "I can't," so I said "OK, then let's do the section." I put the bottom back onto the bed, and the team began to prep for moving to OR. Assessment & Plan Admission and Anticipated Discharge Date Admission Date: March 28, 2022 Results & Data ([facility]) Vital Signs (Past 12 Hours) Vital Signs Temp Pulse Resp BP Pulse Ox 03/29/22 20:01 105 H 96 03/29/22 19:56 106 H 95 03/29/22 19:53 115 H 140/59 L 03/29/22 19:52 115 H 88 L 03/29/22 19:51 106 H 97 03/29/22 19:46 108 H 97 03/29/22 19:41 109 H 95 03/29/22 19:40 112 H 84 L 03/29/22 19:38 113 H 124/65 03/29/22 19:36 107 H 97 03/29/22 19:34 101 H 79 L 03/29/22 19:31 107 H 97 03/29/22 19:27 116 H 89 L 03/29/22 19:26 109 H 99 03/29/22 19:21 108 H 97 03/29/22 19:20 120 H 85 L 03/29/22 19:16 109 H 99 03/29/22 19:11 113 H 99 03/29/22 19:10 116 H 87 L 03/29/22 19:07 111 H 142/82 H 03/29/22 19:06 121 H 77 L 03/29/22 19:01 119 H 100 03/29/22 18:56 113 H 98 03/29/22 18:53 114 H 130/79 03/29/22 18:51 113 H 100 03/29/22 18:46 113 H 99 03/29/22 18:41 111 H 98 03/29/22 18:38 111 H 127/78 03/29/22 18:36 125 H 92 03/29/22 18:31 116 H 99 03/29/22 18:26 113 H 100 03/29/22 18:23 98.6 F 03/29/22 18:21 113 H 100 03/29/22 18:16 108 H 98 03/29/22 18:11 110 H 100 03/29/22 18:07 106 H 138/78 03/29/22 18:06 105 H 100 03/29/22 18:01 108 H 100 03/29/22 17:56 109 H 99 03/29/22 17:53 105 H 147/83 H 03/29/22 17:51 110 H 100 03/29/22 17:46 109 H 100 03/29/22 17:41 113 H 100 03/29/22 17:36 111 H 100 03/29/22 17:31 112 H 100 03/29/22 17:29 110 H 86 L 03/29/22 17:26 111 H 100 03/29/22 17:21 108 H 100 03/29/22 17:22 110 H 118/79 03/29/22 17:16 112 H 99 03/29/22 17:11 109 H 100 03/29/22 17:07 115 H 123/79 03/29/22 17:06 109 H 100 03/29/22 17:01 106 H 100 03/29/22 16:56 102 H 100 03/29/22 16:51 107 H 100 03/29/22 16:52 108 H 115/75 03/29/22 16:46 104 H 100 03/29/22 16:41 106 H 100 03/29/22 16:36 104 H 100 03/29/22 16:37 103 H 129/74 03/29/22 16:31 108 H 100 03/29/22 16:26 113 H 99 03/29/22 16:21 107 H 100 03/29/22 16:22 112 H 134/69 03/29/22 16:16 106 H 100 03/29/22 16:11 103 H 100 03/29/22 16:06 102 H 100 03/29/22 16:07 101 H 121/82 03/29/22 15:59 18 03/29/22 15:59 18 03/29/22 16:01 102 H 100 03/29/22 14:59 18 03/29/22 14:59 18 03/29/22 15:56 101 H 100 03/29/22 15:53 101 H 117/77 03/29/22 15:51 102 H 100 03/29/22 15:46 101 H 100 03/29/22 15:41 103 H 99 03/29/22 15:36 101 H 100 03/29/22 15:37 102 H 114/70 03/29/22 15:31 99 H 100 03/29/22 15:26 100 H 100 03/29/22 15:25 98.1 F 03/29/22 15:23 102 H 138/79 03/29/22 15:21 102 H 100 03/29/22 15:16 107 H 100 03/29/22 15:11 102 H 98 03/29/22 15:06 103 H 100 03/29/22 15:07 101 H 127/59 L 03/29/22 15:01 96 H 100 03/29/22 14:56 112 H 100 03/29/22 14:54 55 L 124/87 03/29/22 14:51 94 H 100 03/29/22 14:46 107 H 100 03/29/22 14:41 103 H 100 03/29/22 14:36 104 H 100 03/29/22 14:37 103 H 128/85 03/29/22 14:31 109 H 95 03/29/22 14:26 99 H 100 03/29/22 14:23 103 H 98/63 L 03/29/22 14:21 99 H 100 03/29/22 14:16 95 H 100 03/29/22 14:11 97 H 100 03/29/22 14:09 100 H 100/68 03/29/22 14:06 103 H 100 03/29/22 14:01 100 H 100 03/29/22 13:56 104 H 100 03/29/22 13:51 103 H 100 03/29/22 13:52 104 H 98/63 L 03/29/22 13:46 93 H 100 03/29/22 13:41 96 H 100 03/29/22 13:38 102 H 102/64 03/29/22 13:36 98 H 100 03/29/22 13:31 102 H 100 03/29/22 13:30 106 H 18 85 L 03/29/22 13:26 98 H 100 03/29/22 13:22 104 H 123/75 03/29/22 13:21 98 H 100 03/29/22 13:16 99 H 100 03/29/22 13:11 92 H 100 03/29/22 13:06 93 H 100 03/29/22 13:07 94 H 127/79 03/29/22 13:01 93 H 100 03/29/22 12:56 97 H 100 03/29/22 12:53 104 H 117/78 03/29/22 12:51 101 H 100 03/29/22 12:46 119 H 100 03/29/22 12:42 100 H 84 L 03/29/22 12:41 102 H 100 03/29/22 12:38 108 H 124/53 L 03/29/22 12:36 103 H 98 03/29/22 12:31 100 H 100 03/29/22 12:26 98 H 100 03/29/22 12:24 107 H 84 L 03/29/22 12:22 100 H 130/68 03/29/22 12:21 98 H 100 03/29/22 12:16 97 H 100 03/29/22 12:11 95 H 100 03/29/22 12:07 96 H 121/59 L 03/29/22 12:06 94 H 100 03/29/22 12:03 98 H 86 L 03/29/22 12:01 100 H 100 03/29/22 11:56 100 H 100 03/29/22 11:51 97 H 100 03/29/22 11:49 100 H 85 L 03/29/22 11:46 98 H 99 03/29/22 11:41 98 H 100 03/29/22 11:32 20 03/29/22 11:32 20 03/29/22 11:36 98 H 100 03/29/22 11:31 95 H 99 03/29/22 11:26 90 100 03/29/22 11:22 89 135/65 03/29/22 11:21 88 99 03/29/22 11:16 88 99 03/29/22 11:11 87 100 03/29/22 11:06 86 100 03/29/22 11:07 86 132/82 03/29/22 11:00 16 03/29/22 11:00 16 03/29/22 11:01 86 100 03/29/22 10:56 86 100 03/29/22 10:53 87 132/76 03/29/22 10:30 18 03/29/22 10:30 18 03/29/22 10:51 87 100 03/29/22 10:46 89 100 03/29/22 10:41 90 100 03/29/22 10:38 87 137/62 03/29/22 10:36 86 100 03/29/22 10:31 81 100 03/29/22 10:26 79 100 03/29/22 10:23 78 118/64 03/29/22 10:21 79 100 03/29/22 10:16 79 100 03/29/22 10:11 79 100 03/29/22 10:06 79 100 03/29/22 10:07 78 107/58 L 03/29/22 10:00 18 03/29/22 10:00 18 03/29/22 10:01 79 100 03/29/22 09:56 82 100 03/29/22 09:52 83 119/69 03/29/22 09:51 83 100 03/29/22 09:46 97.5 F L 81 100 03/29/22 09:41 83 100 03/29/22 09:38 83 118/80 03/29/22 09:30 18 03/29/22 09:30 18 03/29/22 09:36 80 100 03/29/22 09:31 86 100 03/29/22 09:26 87 100 03/29/22 09:23 82 123/79 03/29/22 09:21 82 100 03/29/22 09:16 83 100 03/29/22 09:11 85 100 03/29/22 09:00 18 03/29/22 09:00 18 03/29/22 09:09 86 104/62 03/29/22 09:08 91 H 86 L 03/29/22 09:06 84 100 03/29/22 08:29 18 03/29/22 08:29 18 03/29/22 09:01 85 100 03/29/22 08:56 97.5 F L 87 100 03/29/22 08:52 84 109/76 03/29/22 08:51 86 97 03/29/22 08:46 85 100 03/29/22 08:41 88 100 03/29/22 08:38 86 126/77 03/29/22 08:36 86 100 03/29/22 08:35 88 18 88 L 03/29/22 08:31 83 100 03/29/22 08:26 83 100 03/29/22 08:21 84 100 03/29/22 08:22 84 114/78 03/29/22 08:16 88 100 03/29/22 08:11 85 100 03/29/22 08:08 84 112/76 Coding Level of Care Code None
[2022-03-29] MEDS ORDERED: MoRPHine SULFATE PF 1 MG/ML 10 ML AMP/VIAL ONE (20:37)
[2022-03-29] MEDS ORDERED: PHENYLEPHRINE 100MCG/ML 5ML SYR ONE (20:39)
[2022-03-29] MEDS ORDERED: ONDANSETRON INJ 2 MG/ML 2 ML VIAL ONE (20:40)
[2022-03-29] MEDS ORDERED: NALBUPHINE HCL INJ 10 MG/ML AMP IV PRN (21:21)
[2022-03-29] MEDS ORDERED: NALOXONE HCL 0.4 MG/1 ML VIAL/CARP IV PRN (21:21)
[2022-03-29] MEDS ORDERED: NALOXONE HCL 1 MG in SODIUM CHLORIDE 0.9% 1000ML 1,000 ML IV PRN (21:21)
[2022-03-29] MEDS ORDERED: ONDANSETRON INJ 2 MG/ML 2 ML VIAL IV PRN (21:21)
[2022-03-29] MEDS ORDERED: LACTATED RINGER'S 500 ML IV PRN (21:21)
[2022-03-29] MEDS ORDERED: diphenhydrAMINE 50 MG/ML VIAL IV PRN (21:21)
[2022-03-29] MEDS ORDERED: NALOXONE HCL 0.08 MG in SYRINGE 1.8 ML IV PRN (21:21)
[2022-03-29] MEDS ORDERED: MoRPHine SULFATE PF 1 MG/ML 10 ML AMP/VIAL EPI ONE (21:21)
[2022-03-29] MEDS ORDERED: ePHEDrine sulfate 50 MG/ML AMP IV PRN (21:21)
[2022-03-29] MEDS ORDERED: HYDROmorphone INJ 0.5 MG/0.5 ML SYR IV PRN (21:21)
[2022-03-29] MEDS ORDERED: SODIUM CHLORIDE 0.9% 1000ML 1,000 ML IV SCH (21:30)
[2022-03-29] MEDS ORDERED: DC INTRASPINAL MORPHINE SCH (21:30)
[2022-03-29] MEDS ORDERED: NO NARCOTICS OR SEDATIVES SCH (21:30)
--- NOTE | 2022-03-29 21:34 | Communication Note ---
Date of Service: March 29, 2022 Patient out of , has BG of 91 per CGM. Stop intrapartum protocols now. Will offer carb-count diet, and give her the remainder of her daily levemir basal dose now. (She usually takes 60u SQ daily. She had 60u SQ yesterday morning, then began IOL / limited PO intake yesterday around 6pm, had 30u SQ levemir earlier this afternoon while NPO, and will now give the other 30u SQ as she resumes diet.) May or may not need her typical correction dose of 1u short- acting per 10g carb overnight; will watch CGM hourly overnight to determine. Have placed consult for hospitalist to ensure we have appropriate plan for management of Type 1 DM during the remainder of her admission by morning.
--- NOTE | 2022-03-29 21:36 | Anesthesiology Progress Note ---
Date of Service March 29, 2022 Anesthesia Post Procedure Vital Signs Vital Signs: Temp Pulse Resp BP Pulse Ox 03/29/22 21:33 92 H 97 03/29/22 21:28 93 H 97 03/29/22 21:29 90 97/48 L 03/29/22 21:23 93 H 96 03/29/22 21:22 93 H 94 03/29/22 21:18 91 H 97 03/29/22 21:19 90 98/52 L 03/29/22 20:21 105 H 95 03/29/22 20:16 108 H 96 03/29/22 20:11 103 H 95 03/29/22 20:06 105 H 94 03/29/22 20:07 104 H 123/64 03/29/22 20:01 105 H 96 03/29/22 19:56 106 H 95 03/29/22 19:53 115 H 140/59 L 03/29/22 19:52 115 H 88 L 03/29/22 19:51 106 H 97 03/29/22 19:46 108 H 97 03/29/22 19:41 109 H 95 03/29/22 19:40 112 H 84 L 03/29/22 19:38 113 H 124/65 03/29/22 19:36 107 H 97 03/29/22 19:34 101 H 79 L 03/29/22 19:31 107 H 97 03/29/22 19:27 116 H 89 L 03/29/22 19:26 109 H 99 03/29/22 19:21 108 H 97 03/29/22 19:20 120 H 85 L 03/29/22 19:16 109 H 99 03/29/22 19:11 113 H 99 03/29/22 19:10 116 H 87 L 03/29/22 19:07 111 H 142/82 H 03/29/22 19:06 121 H 77 L 03/29/22 19:01 119 H 100 03/29/22 18:56 113 H 98 03/29/22 18:53 114 H 130/79 03/29/22 18:51 113 H 100 03/29/22 18:46 113 H 99 03/29/22 18:41 111 H 98 03/29/22 18:38 111 H 127/78 03/29/22 18:36 125 H 92 03/29/22 18:31 116 H 99 03/29/22 18:26 113 H 100 03/29/22 18:23 37.0 C 03/29/22 18:21 113 H 100 03/29/22 18:16 108 H 98 03/29/22 18:11 110 H 100 03/29/22 18:07 106 H 138/78 03/29/22 18:06 105 H 100 03/29/22 18:01 108 H 100 03/29/22 17:56 109 H 99 03/29/22 17:53 105 H 147/83 H 03/29/22 17:51 110 H 100 03/29/22 17:46 109 H 100 03/29/22 17:41 113 H 100 03/29/22 17:36 111 H 100 03/29/22 17:31 112 H 100 03/29/22 17:29 110 H 86 L 03/29/22 17:26 111 H 100 03/29/22 17:21 108 H 100 03/29/22 17:22 110 H 118/79 03/29/22 17:16 112 H 99 03/29/22 17:11 109 H 100 03/29/22 17:07 115 H 123/79 03/29/22 17:06 109 H 100 03/29/22 17:01 106 H 100 03/29/22 16:56 102 H 100 03/29/22 16:51 107 H 100 03/29/22 16:52 108 H 115/75 03/29/22 16:46 104 H 100 03/29/22 16:41 106 H 100 03/29/22 16:36 104 H 100 03/29/22 16:37 103 H 129/74 03/29/22 16:31 108 H 100 03/29/22 16:26 113 H 99 03/29/22 16:21 107 H 100 03/29/22 16:22 112 H 134/69 03/29/22 16:16 106 H 100 03/29/22 16:11 103 H 100 03/29/22 16:06 102 H 100 03/29/22 16:07 101 H 121/82 03/29/22 15:59 18 03/29/22 15:59 18 03/29/22 16:01 102 H 100 03/29/22 14:59 18 03/29/22 14:59 18 03/29/22 15:56 101 H 100 03/29/22 15:53 101 H 117/77 03/29/22 15:51 102 H 100 03/29/22 15:46 101 H 100 03/29/22 15:41 103 H 99 03/29/22 15:36 101 H 100 03/29/22 15:37 102 H 114/70 03/29/22 15:31 99 H 100 03/29/22 15:26 100 H 100 03/29/22 15:25 36.7 C 03/29/22 15:23 102 H 138/79 03/29/22 15:21 102 H 100 03/29/22 15:16 107 H 100 03/29/22 15:11 102 H 98 03/29/22 15:06 103 H 100 03/29/22 15:07 101 H 127/59 L 03/29/22 15:01 96 H 100 03/29/22 14:56 112 H 100 03/29/22 14:54 55 L 124/87 03/29/22 14:51 94 H 100 03/29/22 14:46 107 H 100 03/29/22 14:41 103 H 100 03/29/22 14:36 104 H 100 03/29/22 14:37 103 H 128/85 03/29/22 14:31 109 H 95 03/29/22 14:26 99 H 100 03/29/22 14:23 103 H 98/63 L 03/29/22 14:21 99 H 100 03/29/22 14:16 95 H 100 03/29/22 14:11 97 H 100 03/29/22 14:09 100 H 100/68 03/29/22 14:06 103 H 100 03/29/22 14:01 100 H 100 03/29/22 13:56 104 H 100 03/29/22 13:51 103 H 100 03/29/22 13:52 104 H 98/63 L 03/29/22 13:46 93 H 100 03/29/22 13:41 96 H 100 03/29/22 13:38 102 H 102/64 03/29/22 13:36 98 H 100 03/29/22 13:31 102 H 100 03/29/22 13:30 106 H 18 85 L 03/29/22 13:26 98 H 100 03/29/22 13:22 104 H 123/75 03/29/22 13:21 98 H 100 03/29/22 13:16 99 H 100 03/29/22 13:11 92 H 100 03/29/22 13:06 93 H 100 03/29/22 13:07 94 H 127/79 03/29/22 13:01 93 H 100 03/29/22 12:56 97 H 100 03/29/22 12:53 104 H 117/78 03/29/22 12:51 101 H 100 03/29/22 12:46 119 H 100 03/29/22 12:42 100 H 84 L 03/29/22 12:41 102 H 100 03/29/22 12:38 108 H 124/53 L 03/29/22 12:36 103 H 98 03/29/22 12:31 100 H 100 03/29/22 12:26 98 H 100 03/29/22 12:24 107 H 84 L 03/29/22 12:22 100 H 130/68 03/29/22 12:21 98 H 100 03/29/22 12:16 97 H 100 03/29/22 12:11 95 H 100 03/29/22 12:07 96 H 121/59 L 03/29/22 12:06 94 H 100 03/29/22 12:03 98 H 86 L 03/29/22 12:01 100 H 100 03/29/22 11:56 100 H 100 03/29/22 11:51 97 H 100 03/29/22 11:49 100 H 85 L 03/29/22 11:46 98 H 99 03/29/22 11:41 98 H 100 03/29/22 11:32 20 03/29/22 11:32 20 03/29/22 11:36 98 H 100 03/29/22 11:31 95 H 99 03/29/22 11:26 90 100 03/29/22 11:22 89 135/65 03/29/22 11:21 88 99 03/29/22 11:16 88 99 03/29/22 11:11 87 100 03/29/22 11:06 86 100 03/29/22 11:07 86 132/82 03/29/22 11:00 16 03/29/22 11:00 16 03/29/22 11:01 86 100 03/29/22 10:56 86 100 03/29/22 10:53 87 132/76 03/29/22 10:30 18 03/29/22 10:30 18 03/29/22 10:51 87 100 03/29/22 10:46 89 100 03/29/22 10:41 90 100 03/29/22 10:38 87 137/62 03/29/22 10:36 86 100 03/29/22 10:31 81 100 03/29/22 10:26 79 100 03/29/22 10:23 78 118/64 03/29/22 10:21 79 100 03/29/22 10:16 79 100 03/29/22 10:11 79 100 03/29/22 10:06 79 100 03/29/22 10:07 78 107/58 L 03/29/22 10:00 18 03/29/22 10:00 18 03/29/22 10:01 79 100 03/29/22 09:56 82 100 03/29/22 09:52 83 119/69 03/29/22 09:51 83 100 03/29/22 09:46 36.4 C L 81 100 03/29/22 09:41 83 100 03/29/22 09:38 83 118/80 03/29/22 09:30 18 03/29/22 09:30 18 03/29/22 09:36 80 100 03/29/22 09:31 86 100 03/29/22 09:26 87 100 03/29/22 09:23 82 123/79 03/29/22 09:21 82 100 03/29/22 09:16 83 100 03/29/22 09:11 85 100 03/29/22 09:00 18 03/29/22 09:00 18 03/29/22 09:09 86 104/62 03/29/22 09:08 91 H 86 L 03/29/22 09:06 84 100 03/29/22 08:29 18 03/29/22 08:29 18 03/29/22 09:01 85 100 03/29/22 08:56 36.4 C L 87 100 03/29/22 08:52 84 109/76 03/29/22 08:51 86 97 03/29/22 08:46 85 100 03/29/22 08:41 88 100 03/29/22 08:38 86 126/77 03/29/22 08:36 86 100 03/29/22 08:35 88 18 88 L 03/29/22 08:31 83 100 03/29/22 08:26 83 100 03/29/22 08:21 84 100 03/29/22 08:22 84 114/78 03/29/22 08:16 88 100 03/29/22 08:11 85 100 03/29/22 08:08 84 112/76 03/29/22 08:06 84 100 03/29/22 08:01 86 100 03/29/22 07:56 84 100 03/29/22 07:53 85 116/76 03/29/22 07:54 85 117/75 03/29/22 07:51 85 100 03/29/22 07:46 86 100 03/29/22 07:41 86 100 03/29/22 07:39 83 127/81 03/29/22 07:36 85 100 03/29/22 07:31 84 100 03/29/22 07:26 84 100 03/29/22 07:23 87 105/73 03/29/22 07:21 87 99 03/29/22 07:16 85 100 03/29/22 07:11 87 100 03/29/22 07:06 97 H 100 03/29/22 07:01 91 H 100 03/29/22 06:56 90 100 03/29/22 06:51 88 100 03/29/22 06:52 88 120/71 03/29/22 06:46 87 100 03/29/22 06:41 87 100 03/29/22 06:37 86 121/74 03/29/22 06:36 88 100 03/29/22 06:31 88 100 03/29/22 06:26 90 100 03/29/22 06:22 90 123/80 03/29/22 06:21 92 H 100 03/29/22 06:16 89 100 03/29/22 06:11 91 H 100 03/29/22 06:06 93 H 100 03/29/22 06:01 94 H 100 03/29/22 05:56 100 H 100 03/29/22 05:53 96 H 109/69 03/29/22 05:51 99 H 100 03/29/22 05:46 95 H 99 03/29/22 05:41 107 H 100 03/29/22 05:38 105 H 102/67 03/29/22 05:36 104 H 100 03/29/22 05:31 105 H 100 03/29/22 05:26 101 H 99 03/29/22 05:23 104 H 112/77 03/29/22 05:21 110 H 99 03/29/22 05:18 86 114/76 03/29/22 05:16 85 99 03/29/22 05:11 93 H 99 03/29/22 05:12 90 88/60 L 03/29/22 05:08 86 03/29/22 05:08 89/60 L 03/29/22 05:07 82 91/58 L 03/29/22 05:08 83 87/60 L 03/29/22 05:06 36.4 C L 82 18 97 03/29/22 03:30 18 03/29/22 03:30 18 03/29/22 04:00 18 03/29/22 04:00 18 03/29/22 04:30 18 03/29/22 04:30 18 03/29/22 01:30 18 03/29/22 01:30 18 03/29/22 02:00 18 03/29/22 02:00 18 03/29/22 02:30 18 03/29/22 02:30 18 03/29/22 03:00 18 03/29/22 03:00 18 03/29/22 05:01 78 98 03/29/22 04:56 70 98 03/29/22 04:51 75 98 03/29/22 04:52 74 107/62 03/29/22 04:46 79 98 03/29/22 04:41 76 97 03/29/22 04:38 75 115/68 03/29/22 04:36 81 100 03/29/22 04:31 81 97 03/29/22 04:26 79 97 03/29/22 04:21 80 97 03/29/22 04:22 81 101/63 03/29/22 04:16 82 97 03/29/22 04:11 82 97 03/29/22 04:06 79 96 03/29/22 04:07 77 108/66 03/29/22 04:01 83 97 03/29/22 03:56 79 98 03/29/22 03:52 78 115/69 03/29/22 03:51 79 97 03/29/22 03:46 78 98 03/29/22 03:41 77 98 03/29/22 03:36 78 97 03/29/22 03:37 79 112/72 03/29/22 03:31 79 97 03/29/22 03:26 81 97 03/29/22 03:22 78 108/71 03/29/22 03:21 80 98 03/29/22 03:16 81 100 03/29/22 03:11 81 100 03/29/22 03:08 78 118/74 03/29/22 03:06 80 100 03/29/22 03:01 83 100 03/29/22 02:56 82 100 03/29/22 02:52 82 132/78 03/29/22 02:51 83 100 03/29/22 02:46 82 100 03/29/22 02:41 83 100 03/29/22 02:36 87 100 03/29/22 02:37 89 102/67 03/29/22 02:31 86 100 03/29/22 02:26 88 100 03/29/22 02:23 85 105/68 03/29/22 02:21 85 100 03/29/22 02:16 86 100 03/29/22 02:11 83 100 03/29/22 02:06 85 100 03/29/22 02:07 77 114/75 03/29/22 02:01 85 100 03/29/22 01:56 86 100 03/29/22 01:51 88 100 03/29/22 01:52 87 115/73 03/29/22 01:46 85 100 03/29/22 01:41 87 100 03/29/22 01:37 85 115/73 03/29/22 01:36 87 100 03/29/22 01:31 88 100 03/29/22 01:26 92 H 100 03/29/22 01:23 91 H 110/69 03/29/22 01:21 83 100 03/29/22 01:00 18 03/29/22 01:00 36.6 C 18 03/29/22 01:16 88 100 03/29/22 01:11 90 100 03/29/22 01:07 93 H 111/62 03/29/22 01:06 91 H 100 03/29/22 01:01 92 H 100 03/29/22 00:56 96 H 100 03/29/22 00:51 84 98 03/29/22 00:46 83 99 03/29/22 00:47 81 100/57 L 03/29/22 00:45 18 03/29/22 00:45 18 03/29/22 00:41 83 100 03/29/22 00:42 82 101/57 L 03/29/22 00:30 18 03/29/22 00:30 18 03/29/22 00:37 90 106/62 03/29/22 00:36 86 99 03/29/22 00:33 85 101/57 L 03/29/22 00:31 87 100 03/28/22 23:52 18 03/28/22 23:52 18 03/29/22 00:07 18 03/29/22 00:07 18 03/29/22 00:26 88 100 03/29/22 00:27 87 100/59 L 03/29/22 00:21 90 105/55 L 100 03/29/22 00:19 96 H 112/62 03/29/22 00:17 93 H 105/53 L 03/29/22 00:16 100 03/29/22 00:16 92 H 03/29/22 00:16 93 H 102/55 L 03/29/22 00:13 89 111/58 L 03/29/22 00:11 96 H 100 03/29/22 00:10 96 H 114/57 L 03/29/22 00:09 94 H 94 03/29/22 00:06 100 H 100 03/29/22 00:01 99 H 99 03/28/22 23:59 91 03/28/22 23:59 100 H 03/28/22 23:56 100 03/28/22 23:56 101 H 03/28/22 23:51 99 03/28/22 23:51 98 H 03/28/22 23:46 100 03/28/22 23:46 86 03/28/22 23:41 100 03/28/22 23:41 87 03/28/22 23:36 100 03/28/22 23:36 84 03/28/22 23:31 100 03/28/22 23:31 90 03/28/22 23:02 18 03/28/22 23:02 36.9 C 18 03/28/22 23:03 86 03/28/22 23:03 110/62 03/28/22 22:02 90 03/28/22 22:02 107/66 Pain Intensity Bilateral Abdomen: Pain Intensity: 0 Transfer of Care Handoff Completed per policy Notes Mental Status: alert / awake / arousable Patient Amnestic to Procedure: Yes Nausea / Vomiting: adequately controlled Pain: adequately controlled Airway Patency, RR, SpO2: stable & adequate BP & HR: stable & adequate Hydration State: stable & adequate Neuraxial Anesthesia: was administered and sensory block is resolving Anesthetic Complications: no major complications apparent and Pt Satisfied with anesthetic care Notes: The patient is comfortable. Postop BSG is 91.
[2022-03-29] MEDS ORDERED: BENZOCAINE 20% AER SPR 82.5 GM CAN EXT PRN (21:38)
[2022-03-29] MEDS ORDERED: DIPHTHERIA/TETANUS/PERTUSSIS 0.5 ML SYR/VIAL IM ONE (21:38)
[2022-03-29] MEDS ORDERED: MAGNESIUM HYDROXIDE SUSP 30 ML UDC PO PRN (21:38)
[2022-03-29] MEDS ORDERED: HYDROCORTISONE ACETATE 25 MG SUPP PR PRN (21:38)
[2022-03-29] MEDS ORDERED: INSULIN DETEMIR FLEXPEN/FLEX TOUCH 100 UNITS/ML 3ML SC ONE (21:38)
[2022-03-29] MEDS ORDERED: SENNA 8.6 MG TAB PO PRN (21:38)
[2022-03-29 21:59] LABS: Base Excess Cord Venous Blood -7.1 mEq/L (-7.7-1.9); Cord Venous Blood HCO3 23 mmol/L (18.4-26.8); Cord Venous Blood PCO2 63 mmHg (30.4-57.2); Cord Venous Blood PO2 11 mmHg (14.1-43.3); Cord Venous Blood pH 7.16 (7.20-7.44); O2 Saturation Cord Venous Bld < 60.0 % (<68)
[2022-03-29 22:00] LABS: Base Excess Cord Arterial Bld -9.3 mEq/L (-9-1.8); CO2 Cord Arterial Blood 69 mmHg (39.1-73.5); HCO3 Cord Arterial Blood 21 mmol/L (19.7-28.5); Oxygen Sat Cord Arterial Blood < 60.0 % (<60); PO2 Cord Arterial Blood 6 mmHg (4.1-31.7)
[2022-03-29] MEDS ORDERED: OXYTOCIN 30 UNITS in LACTATED RINGER'S 1,000 ML IV SCH (22:00)
--- NOTE | 2022-03-29 22:13 | Operative Report ---
PG Post Operative Report Pre & Post Diagnosis Operation Date: 03/29/22 18:30 Pre-Op Diagnosis: 1. Non-reassuring heart tones 2. Meconium fluid 3. Maternal exhaustion 4. Type 1 Diabetes Mellitus Post-Op Diagnosis: Same I identified the patient and participated in the time-out.: Yes Procedure Operation Date: 03/29/22 18:30 Actual Procedures Primary Low Transverse Section with left extension Surgeon Maral Garcia MD Senior Database Programmer Laura Estimated Blood Loss 600 Findings Consistent with Post-Op Diagnosis Specimens Placenta, Cord blood, Cord gases Drains Hilario Anesthesia Type L&D Only Epidural Exists Complications none Disposition Accompanied Patient To Recovery: Yes Disposition: L&D Description of Procedure The patient was placed operating table in the supine position with a leftward tilt. She was prepped and draped in standard sterile fashion. The anesthetic was tested and found to be adequate. A time-out was held, identifying correct patient, procedure, positioning and preoperative antibiotics. There were no concerns. Of note, hilario was draining pink-stained urine prior to initiation of , after patient attempted pushing for 1 hour in her labor room. A Pfannenstiel skin incision was made with a knife and taken down to the underlying layer of fascia. The fascia was incised in the midline with the knife and taken out laterally with scissors. The superior edge of the fascial incision was grasped, elevated and dissected off the underlying rectus both superiorly and inferiorly. The muscles were bluntly in the midline. The peritoneum was entered bluntly. The incision was then stretched. The bladder retractor was placed. The vesicouterine peritoneum was identified, entered with scissors and taken out laterally with scissors. The bladder flap was created digitally. A hysterotomy incision was created transversely in the lower uterine segment, final entry being accomplished in a blunt manner with the core drill operator helper's fingers. Stained amniotic fluid was encountered. The core drill operator helper's hand was used to elevate the head to the hysterotomy. The head was delivered using mild fundal pressure, and the shoulders and body followed without difficulty. The cord was clamped and cut by the primary surgeon while the orthotic assistant surgeon provided bulb suction due to the meconium, and the was then handed off to the awaiting station installer having already made respiratory effort on the sterile field. Cord blood was obtained. The placenta was Manually extracted. The uterus was exteriorized and cleared of all clot and debris with moistened laparotomy sponges. An extension was identified at the left angle of the hysterotomy and was repaired in-line with the entire incision creating a finished appearance of a slight hockey-stick. The hysterotomy incision was repaired in two layers, the first in a running locked layer, the second in an imbricating layer. The ovaries and tubes were seen to be normal bilaterally. The uterus was gently replaced in the abdomen, and the gutters were cleared of clot and debris. A final inspection of the hysterotomy revealed good hemostasis. The rectus muscles were allowed to reapproximate naturally. The fascia was then reapproximated with 1 Vicryl in a running nonlocked manner. The fascia was examined and found to be free of defect following closure. The subcutaneous tissue was copiously irrigated and reapproximated with 0-chromic, then the skin edges were closed with 4-0 monocryl in a subcuticular fashion. A dermabond dressing was applied. The hilario was found to be draining pink-stained urine at completion of the procedure similar to what was seen prior to procedure start. I attest to the content of the Intraoperative Record and any orders documented therein. Any exceptions are noted below. I attest to the content of the Intraoperative Record and any orders documented therein. Any exceptions are noted below. OB Procedure Charges 16596
[2022-03-29] MEDS: KETOROLAC 30 MG/ML VIAL IV PRN (22:16)
[2022-03-30] MEDS ORDERED: CITRIC ACID/SODIUM CITRATE 15 ML UDC PO SCH (06:00)
[2022-03-30 06:31] LABS: Basophils # (auto) 0.03 K/uL (0-0.2); Basophils % (auto) 0.2 %; Eosinophils # (auto) 0.01 K/uL (0-0.50); Eosinophils % (auto) 0.1 %; Hematocrit (blood only) 28.4 % (34.1-44.9); Hemoglobin 9.5 g/dl (12.0-16.0); Immature Granulocytes # (auto) 0.07 K/uL (0.00-0.02); Immature Granulocytes % (auto) 0.4 %; Lymphocytes # (auto) 1.56 K/uL (1.2-3.4); Lymphocytes % (auto) 8.4 %; Mean Corpuscular Hemoglobin 30.4 pg (25.0-34.0); Mean Corpuscular Hgb Conc 33.5 g/dL (32.0-36.0); Mean Platelet Volume 12.2 fL (9.4-12.3); Monocytes # (auto) 1.27 K/uL (0.24-0.82); Monocytes % (auto) 6.8 %; Neutrophils # (auto) 15.61 K/uL (1.4-6.5); Neutrophils % (auto) 84.1 %; Platelet Count 171 K/uL (130-400); RDW Coefficient of Variation 13.3 % (11.5-14.5); RDW Standard Deviation 42.6 fL (36.4-46.3); Red Blood Count 3.12 M/uL (3.93-5.22); White Blood Count 18.55 K/ul (4.8-10.8)
[2022-03-30] MEDS ORDERED: PHARMACY GLYCEMIC MGMT CONSULT PRN (06:50)
[2022-03-30] MEDS ORDERED: GLUCOSE 40% GEL 15 GM TUBE PO PRN (07:04)
[2022-03-30] MEDS ORDERED: GLUCAGON FOR INJ 1 MG VIAL SQ PRN (07:04)
--- NOTE | 2022-03-30 07:22 | Hospitalist Consultation ---
Date of Consultation March 30, 2022 Assessment & Plan (1) Diabetic peripheral neuropathy associated with type 1 diabetes mellitus: 36 yo F Hx DM1, GERD admitted by OB primary for induction of labor, ultimately underwent primary C section for non-reassuring heart tones and maternal exhaustion. Following her C section she was noted to have low BSGs on CGM despite having juice, soda, crackers, etc. Hospitalist service was consulted by Dr. Giulia Garcia for DM1 management and hypoglycemia. DM1, hypoglycemic episodes: Yesterday received a total of 60u Levemir; last dose 9pm 03/29. Was NPO until post-C section, and this AM noted to have BSGs 60s on CGM. Hold AM Levemir and reassess this evening. Hypoglycemia protocol ordered. Can consider continuous D5 infusion if patient's blood sugars are repeatedly low. Sliding scale insulin for meals: --Goal BSG Range: Low 110 mg/dL, High 140 mg/dL. --Correction Factor: 55 mg/dL/unit. --Carbohydrate ratio = 15 g/unit. -- BSGs qACHS if eating, with spot checks as needed. (2) Hypoglycemia: see above (3) GERD without esophagitis: Continue PPI. Zofran as needed for nausea. Nausea could be multifactorial with recent C- section, reflux, hypoglycemia. Plan Dispo: L+D with medicine consult History of Present Illness Reason for Consultation: hypoglycemia in DM1 patient Requesting Physician: Dr. Maral Garcia Attending Physician: Felecia Sanchez MD History of Present Illness 36-year-old female past medical history significant for type 1 diabetes, GERD admitted for induction of labor. Underwent primary due to intolerance to labor and maternal exhaustion. Following was noted to have hypoglycemic events in the 60s despite several snacks. Hospitalist service was consulted for hyperglycemia management in DM1 patient. On my interview patient reports that her BSG is typically in the 90s between meals, with postprandial sugars being around 120s. She is on Levemir 60 units daily, and reports that if she does not take her Levemir she gets very nauseous. Yesterday the patient received a total of 60 units of Levemir. She denies chest pain, shortness of breath, dizziness. She does endorse some nausea which she attributes to volume of liquids she was trying to drink to try to get her sugars up. She has a continuous glucose monitor, but she does not have an insulin pump. She follows a sliding scale at home based on her carb intake. Her last A1c on record was 7.5% in October. With regard to other medical history, patient reports that she takes PPI daily for reflux. She denies any burning or epigastric pain at this time. She does have some soreness due to recent section, however is otherwise doing well. Allergies Allergy/AdvReac Type Severity Reaction Status Date / Time No Known Allergies Allergy Verified 03/27/22 15:34 Home Medications Medication Instructions Recorded Confirmed Type glucagon HCl 1 mg solution for 1 mg IM UD PRN Emergency 02/04/21 03/28/22 History injection (Glucagon (HCl) Emergency Kit) blood-glucose sensor (Yabidu G6 #1 ea 03/22/21 03/27/22 Rx Sensor device) insulin aspart U-100 100 unit/mL See Rx Instructions subcut 06/26/21 03/28/22 Rx (3 mL) subcutaneous pen .complex #30 mL prenat.vits,ramon,pzk-[id number]-[id number] 1 tab PO DAILY 08/09/21 03/28/22 History aspirin 81 mg tablet,delayed 81 mg PO DAILY 11/08/21 03/28/22 History release blood sugar diagnostic (OneTouch See Rx Instructions .Route 01/07/22 03/28/22 Rx Ultra Test strips) .COMPLEX #400 strips omeprazole 20 mg tablet,delayed 20 mg PO DAILY 02/06/22 03/28/22 History release insulin detemir U-100 100 unit/mL 60 unit (0.6 mL) subcut ONCE #15 mL 02/21/22 03/28/22 Rx (3 mL) subcutaneous pen (Levemir FlexTouch U-100 Insulin) pen needle, diabetic 32 gauge x 03/06/22 03/27/22 History 5/32" (BD Ailin 2nd Gen Pen Needle) Patient History Medical History Benign nevus Diabetes type 1, uncontrolled Diabetic ketoacidosis Diabetic peripheral neuropathy associated with type 1 diabetes mellitus Dysesthesia Epidermal inclusion cyst History of HPV infection Surgical History H/O LEEP H/O oral surgery Family History Aunt Breast cancer Maternal Sister Biliary atresia Mother Ovarian cyst Denies family history of Ovarian cancer Prostate cancer Diabetes Myocardial infarction Colorectal cancer Hypertension Social History Smoking Status: Never smoker Second Hand Exposure: No; Hx Alcohol Use: No Hx Substance Use: No Preferred Language: Malay Communication Ability: Effective Visual Impairment: No Limitations Hearing Ability: Normal Engraving Patternmaker Required: No Beliefs That Will Affect Care: None marital status: marital status details: Jermaine Torres (28) [phone] Current Living Situation: Spouse Current Living Situation Comment: - Jermaine current occupational status: employed 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 Feels Safe at Home: Yes Safety Concerns: Feels Safe At This Time Childhood Exposure to Second-Hand Smoke: No caffeine: No Dental Care, Regularly: Yes Physical Activity Frequency: Does not Exercise Seatbelt Use: sometimes Sunscreen Use: Yes Do you think of yourself as: straight/heterosexual Gender Identity: Female Assistive Devices: Glasses Review of Systems Constitutional: + malaise (Feels nauseated); no fever and no chills Eyes: no blind spots and no worsening vision Ear, Nose, Mouth, Throat: no nasal congestion and no epistaxis Respiratory: no cough and no dyspnea Cardiovascular: no chest pain, no palpitations and no edema Gastrointestinal: + abdominal pain (At site); no constipation and no diarrhea/loose stools Genitourinary: no dysuria and no hematuria Musculoskeletal: no back pain and no neck pain Integumentary: no rash and no skin ulcer Neurologic: no localized weakness and no loss of sensation Psychiatric: no behavioral changes and no confusion Endocrine: + fatigue (Due to labor yesterday); no polydipsia and no polyuria Hematologic / Lymphatic: no easy bleeding and no easy bruising Physical Exam Constitutional: WD/WN, vitals as above well developed and well nourished; no acute distress Eyes: PERRL, conjunctivae normal, anicteric sclerae ENMT: external ear and nose normal, oropharynx normal Neck: trachea midline, no thyromegaly Respiratory: normal respiratory effort, lungs clear to auscultation Cardiovascular: RRR, no murmur, no edema Gastrointestinal (Abdomen): abdomen soft, post-gravid Musculoskeletal: no cyanosis or clubbing, extremities motor strength 5/5 Skin: no rashes, warm and dry Neurologic: Normal speech PERRLA, EOMI, no nystagmus. Bilateral UE, LE, and face without sensory or motor deficits. Psychiatric: A+Ox3, euthymic affect Results & Data Results & Data ([facility] [place]) Vital Signs (Past 12 Hours) Vital Signs Temp Pulse Pulse Resp BP BP Pulse Ox 03/29/22 23:48 03/30/22 05:23 17 93 03/30/22 04:10 16 94 03/30/22 03:15 16 93 03/30/22 02:15 16 92 03/30/22 01:15 16 94 03/30/22 00:15 36.8 C 111 H 15 115/74 92 03/30/22 00:15 15 93 03/29/22 23:19 36.5 C 16 03/29/22 22:49 16 03/29/22 22:09 14 03/29/22 21:59 16 03/29/22 21:49 14 03/29/22 21:39 16 03/29/22 21:29 14 03/29/22 21:19 36.4 C L 14 03/29/22 21:19 03/29/22 23:43 106 H 93 03/29/22 23:38 107 H 127/72 93 03/29/22 23:36 107 H 91 03/29/22 23:33 108 H 92 03/29/22 23:28 92 03/29/22 23:28 108 H 03/29/22 23:29 107 H 91 03/29/22 23:28 108 H 117/68 03/29/22 23:23 105 H 93 03/29/22 23:24 107 H 91 03/29/22 23:19 107 H 91 03/29/22 23:18 108 H 125/70 92 03/29/22 23:13 106 H 93 03/29/22 23:08 108 H 118/64 94 03/29/22 23:05 105 H 94 03/29/22 23:03 102 H 98 03/29/22 22:57 102 H 94 03/29/22 22:58 101 H 123/69 96 03/29/22 22:53 102 H 96 03/29/22 22:49 103 H 94 03/29/22 22:48 103 H 126/67 94 03/29/22 22:43 106 H 98 03/29/22 22:38 101 H 121/60 97 03/29/22 22:33 98 H 97 03/29/22 22:28 97 H 113/61 99 03/29/22 22:23 95 H 98 03/29/22 22:18 102 H 97 03/29/22 22:19 100 H 110/59 L 03/29/22 22:13 98 H 95 03/29/22 22:08 99 H 112/56 L 98 03/29/22 22:03 94 H 99 03/29/22 21:59 93 H 107/54 L 03/29/22 21:58 94 H 99 03/29/22 21:53 94 H 98 03/29/22 21:48 98 03/29/22 21:48 92 H 03/29/22 21:48 91 H 94/47 L 03/29/22 21:43 91 H 98 03/29/22 21:41 92 H 97/50 L 03/29/22 21:38 91 H 97 03/29/22 21:33 92 H 97 03/29/22 21:28 93 H 97 03/29/22 21:29 90 97/48 L 03/29/22 21:23 93 H 96 03/29/22 21:22 93 H 94 03/29/22 21:18 91 H 97 03/29/22 21:19 90 98/52 L 03/29/22 20:21 105 H 95 03/29/22 20:16 108 H 96 03/29/22 20:11 103 H 95 03/29/22 20:06 105 H 94 03/29/22 20:07 104 H 123/64 03/29/22 20:01 105 H 96 03/29/22 19:56 106 H 95 03/29/22 19:53 115 H 140/59 L 03/29/22 19:52 115 H 88 L 03/29/22 19:51 106 H 97 03/29/22 19:46 108 H 97 03/29/22 19:41 109 H 95 03/29/22 19:40 112 H 84 L 03/29/22 19:38 113 H 124/65 09/17/22 19:36 107 H 97 03/29/22 19:34 101 H 79 L 03/29/22 19:31 107 H 97 03/29/22 19:27 116 H 89 L 03/29/22 19:26 109 H 99 O2 Del Method O2 Del Method 03/29/22 23:48 Room Air 03/30/22 05:23 03/30/22 04:10 03/30/22 03:15 03/30/22 02:15 03/30/22 01:15 03/30/22 00:15 Room Air 03/30/22 00:15 03/29/22 23:19 03/29/22 22:49 03/29/22 22:09 03/29/22 21:59 03/29/22 21:49 03/29/22 21:39 03/29/22 21:29 03/29/22 21:19 03/29/22 21:19 Room Air 03/29/22 23:43 03/29/22 23:38 03/29/22 23:36 03/29/22 23:33 03/29/22 23:28 03/29/22 23:28 03/29/22 23:29 03/29/22 23:28 03/29/22 23:23 03/29/22 23:24 03/29/22 23:19 03/29/22 23:18 03/29/22 23:13 03/29/22 23:08 03/29/22 23:05 03/29/22 23:03 03/29/22 22:57 03/29/22 22:58 03/29/22 22:53 03/29/22 22:49 03/29/22 22:48 03/29/22 22:43 03/29/22 22:38 03/29/22 22:33 03/29/22 22:28 03/29/22 22:23 03/29/22 22:18 03/29/22 22:19 03/29/22 22:13 03/29/22 22:08 03/29/22 22:03 03/29/22 21:59 03/29/22 21:58 03/29/22 21:53 03/29/22 21:48 03/29/22 21:48 03/29/22 21:48 03/29/22 21:43 03/29/22 21:41 03/29/22 21:38 03/29/22 21:33 03/29/22 21:28 03/29/22 21:29 03/29/22 21:23 03/29/22 21:22 03/29/22 21:18 03/29/22 21:19 03/29/22 20:21 03/29/22 20:16 03/29/22 20:11 03/29/22 20:06 03/29/22 20:07 03/29/22 20:01 03/29/22 19:56 03/29/22 19:53 03/29/22 19:52 03/29/22 19:51 03/29/22 19:46 03/29/22 19:41 03/29/22 19:40 03/29/22 19:38 03/29/22 19:36 03/29/22 19:34 03/29/22 19:31 03/29/22 19:27 03/29/22 19:26 PG Care Time/CCT Total # of Minutes Spent Total Time Spent with Patient: Total time spent is greater than 50% in coordination of care (as documented) at patient's floor/unit and/or counseling patient: Coding Level of Care Code 72989 Inpt Consult Level 4 Diagnoses Diabetic peripheral neuropathy associated with type 1 diabetes mellitus E10.42 Hypoglycemia E16.2 GERD without esophagitis K21.9
--- NOTE | 2022-03-30 07:42 | Obstetrical Progress Note ---
Date of Service March 30, 2022 Assessment & Plan (1) delivery delivered: Patient with normal postop recovery from a surgical standpoint. Ambulate, pain control, TOV, support today. (2) Diabetes type 1, uncontrolled: Has not received additional insulin since her half-basal dose of Levemir last night and has had lower glucose values through the night despite juice and crackers. Discussed with guidance consultant who did see patient this AM. Plan in place to advance diet, and pharmacy / hospitalist now available to assist with resuming insulin when needed. Subjective Ambulation: limited ambulation (In bed SCD's on) Voiding: hilario catheter in place Passing Gas:: Yes Diet Tolerance:: regular diet (Crackers, PB, juice, glucose tabs O/N) Lochia:: Small Feeding Type:: breast feeding Physical Exam Constitutional WD/WN, vitals as above Eyes PERRL, conjunctivae normal, anicteric sclerae Neck normal visual inspection Respiratory normal respiratory effort and able to speak in complete sentences; no respiratory distress and no labored breathing Cardiovascular Rate/Rhythm: regular rate and regular rhythm Extremities: no edema Chest (Breasts) Chest: normal inspection of chest Gastrointestinal (Abdomen) Inspection/Auscultation: abdomen normal to inspection Soft, postgravid Incision C/D/I with dermabond Psychiatric A+Ox3, euthymic affect Genitourinary OB Exam Abdomen: + fundal height Fundus: + firm and + relation to umbilicus (fundus just below umbilicus); not tender Results & Data ([place]) Vital Signs (Past 12 Hours) Vital Signs Temp Pulse Pulse Resp BP BP Pulse Ox 03/29/22 23:48 03/30/22 05:23 17 93 03/30/22 04:10 16 94 03/30/22 03:15 16 93 03/30/22 02:15 16 03/30/22 01:15 16 94 03/30/22 00:15 98.2 F 111 H 15 115/74 92 03/30/22 00:15 15 93 03/29/22 23:19 97.7 F 16 03/29/22 22:49 16 03/29/22 22:09 14 03/29/22 21:59 16 03/29/22 21:49 14 03/29/22 21:39 16 09/17/22 21:29 14 03/29/22 21:19 97.5 F L 14 03/29/22 21:19 03/29/22 23:43 106 H 93 03/29/22 23:38 107 H 127/72 93 03/29/22 23:36 107 H 91 03/29/22 23:33 108 H 92 03/29/22 23:28 92 03/29/22 23:28 108 H 03/29/22 23:29 107 H 91 03/29/22 23:28 108 H 117/68 03/29/22 23:23 105 H 93 03/29/22 23:24 107 H 91 03/29/22 23:19 107 H 91 03/29/22 23:18 108 H 125/70 92 03/29/22 23:13 106 H 93 03/29/22 23:08 108 H 118/64 94 03/29/22 23:05 105 H 94 03/29/22 23:03 102 H 98 03/29/22 22:57 102 H 94 03/29/22 22:58 101 H 123/69 96 03/29/22 22:53 102 H 96 03/29/22 22:49 103 H 94 03/29/22 22:48 103 H 126/67 94 03/29/22 22:43 106 H 98 03/29/22 22:38 101 H 121/60 97 03/29/22 22:33 98 H 97 03/29/22 22:28 97 H 113/61 99 03/29/22 22:23 95 H 98 03/29/22 22:18 102 H 97 03/29/22 22:19 100 H 110/59 L 03/29/22 22:13 98 H 95 03/29/22 22:08 99 H 112/56 L 98 03/29/22 22:03 94 H 99 03/29/22 21:59 93 H 107/54 L 03/29/22 21:58 94 H 99 03/29/22 21:53 94 H 98 03/29/22 21:48 98 03/29/22 21:48 92 H 03/29/22 21:48 91 H 94/47 L 03/29/22 21:43 91 H 98 03/29/22 21:41 92 H 97/50 L 03/29/22 21:38 91 H 97 03/29/22 21:33 92 H 97 03/29/22 21:28 93 H 97 03/29/22 21:29 90 97/48 L 03/29/22 21:23 93 H 96 03/29/22 21:22 93 H 94 03/29/22 21:18 91 H 97 03/29/22 21:19 90 98/52 L 03/29/22 20:21 105 H 95 03/29/22 20:16 108 H 96 03/29/22 20:11 103 H 95 03/29/22 20:06 105 H 94 03/29/22 20:07 104 H 123/64 03/29/22 20:01 105 H 96 03/29/22 19:56 106 H 95 03/29/22 19:53 115 H 140/59 L 03/29/22 19:52 115 H 88 L 03/29/22 19:51 106 H 97 03/29/22 19:46 108 H 97 03/29/22 19:41 109 H 95 03/29/22 19:40 112 H 84 L 03/29/22 19:38 113 H 124/65 03/29/22 19:36 107 H 97 03/29/22 19:34 101 H 79 L 03/29/22 19:31 107 H 97 03/29/22 19:27 116 H 89 L O2 Del Method O2 Del Method 03/29/22 23:48 Room Air 03/30/22 05:23 03/30/22 04:10 03/30/22 03:15 03/30/22 02:15 03/30/22 01:15 03/30/22 00:15 Room Air 03/30/22 00:15 03/29/22 23:19 03/29/22 22:49 03/29/22 22:09 03/29/22 21:59 03/29/22 21:49 03/29/22 21:39 03/29/22 21:29 03/29/22 21:19 03/29/22 21:19 Room Air 03/29/22 23:43 03/29/22 23:38 03/29/22 23:36 03/29/22 23:33 03/29/22 23:28 03/29/22 23:28 03/29/22 23:29 03/29/22 23:28 03/29/22 23:23 03/29/22 23:24 03/29/22 23:19 03/29/22 23:18 03/29/22 23:13 03/29/22 23:08 03/29/22 23:05 03/29/22 23:03 03/29/22 22:57 03/29/22 22:58 03/29/22 22:53 03/29/22 22:49 03/29/22 22:48 03/29/22 22:43 03/29/22 22:38 03/29/22 22:33 03/29/22 22:28 03/29/22 22:23 03/29/22 22:18 03/29/22 22:19 03/29/22 22:13 03/29/22 22:08 03/29/22 22:03 03/29/22 21:59 03/29/22 21:58 03/29/22 21:53 03/29/22 21:48 03/29/22 21:48 03/29/22 21:48 03/29/22 21:43 03/29/22 21:41 03/29/22 21:38 03/29/22 21:33 03/29/22 21:28 03/29/22 21:29 03/29/22 21:23 03/29/22 21:22 03/29/22 21:18 03/29/22 21:19 03/29/22 20:21 03/29/22 20:16 03/29/22 20:11 03/29/22 20:06 03/29/22 20:07 03/29/22 20:01 03/29/22 19:56 03/29/22 19:53 03/29/22 19:52 03/29/22 19:51 03/29/22 19:46 03/29/22 19:41 03/29/22 19:40 03/29/22 19:38 03/29/22 19:36 03/29/22 19:34 03/29/22 19:31 03/29/22 19:27 Laboratory Results Laboratory Results - last 24 hr 03/29/22 03/29/22 03/29/22 08:35 09:33 10:34 WBC RBC Hgb Hct MCV MCH MCHC RDW Std Deviation RDW Coeff of Brittany Plt Count MPV Immature Gran % (Auto) Neut % (Auto) Lymph % (Auto) [place] % (Auto) Eos % (Auto) Baso % (Auto) Neut # (Auto) Lymph # (Auto) [place] # (Auto) Eos # (Auto) Baso # (Auto) Immature Gran # (Auto) Cord ABG pH Cord ABG pCO2 Cord ABG pO2 Cord ABG HCO3 Cord ABG Base Excess Cord ABG O2 Sat Cord VBG pH Cord VBG pCO2 Cord VBG pO2 Cord VBG HCO3 Cord VBG Base Excess Cord VBG O2 Sat Blood Gas Comments POC Glucose 89 92 100 H Blood Type Antibody Screen 03/29/22 03/29/22 03/29/22 11:40 12:30 13:31 WBC RBC Hgb Hct MCV MCH MCHC RDW Std Deviation RDW Coeff of Brittany Plt Count MPV Immature Gran % (Auto) Neut % (Auto) Lymph % (Auto) [place] % (Auto) Eos % (Auto) Baso % (Auto) Neut # (Auto) Lymph # (Auto) [place] # (Auto) Eos # (Auto) Baso # (Auto) Immature Gran # (Auto) Cord ABG pH Cord ABG pCO2 Cord ABG pO2 Cord ABG HCO3 Cord ABG Base Excess Cord ABG O2 Sat Cord VBG pH Cord VBG pCO2 Cord VBG pO2 Cord VBG HCO3 Cord VBG Base Excess Cord VBG O2 Sat Blood Gas Comments POC Glucose 100 H 101 H 87 Blood Type Antibody Screen 03/29/22 03/29/22 03/29/22 14:30 17:37 20:30 WBC RBC Hgb Hct MCV MCH MCHC RDW Std Deviation RDW Coeff of Brittany Plt Count MPV Immature Gran % (Auto) Neut % (Auto) Lymph % (Auto) [place] % (Auto) Eos % (Auto) Baso % (Auto) Neut # (Auto) Lymph # (Auto) [place] # (Auto) Eos # (Auto) Baso # (Auto) Immature Gran # (Auto) Cord ABG pH 7.10 Cord ABG pCO2 69 Cord ABG pO2 6 Cord ABG HCO3 21 Cord ABG Base Excess -9.3 L Cord ABG O2 Sat < 60.0 Cord VBG pH Cord VBG pCO2 Cord VBG pO2 Cord VBG HCO3 Cord VBG Base Excess Cord VBG O2 Sat Blood Gas Comments JACQUES POC Glucose 102 H Blood Type A Positive Antibody Screen NEGATIVE 03/29/22 03/29/22 03/29/22 20:30 21:29 22:47 WBC RBC Hgb Hct MCV MCH MCHC RDW Std Deviation RDW Coeff of Brittany Plt Count MPV Immature Gran % (Auto) Neut % (Auto) Lymph % (Auto) [place] % (Auto) Eos % (Auto) Baso % (Auto) Neut # (Auto) Lymph # (Auto) [place] # (Auto) Eos # (Auto) Baso # (Auto) Immature Gran # (Auto) Cord ABG pH Cord ABG pCO2 Cord ABG pO2 Cord ABG HCO3 Cord ABG Base Excess Cord ABG O2 Sat Cord VBG pH 7.16 L Cord VBG pCO2 63 H Cord VBG pO2 11 L Cord VBG HCO3 23 Cord VBG Base Excess -7.1 Cord VBG O2 Sat < 60.0 Blood Gas Comments JACQUES POC Glucose 91 82 Blood Type Antibody Screen 03/30/22 03/30/22 06:24 06:27 WBC 18.55 H RBC 3.12 L Hgb 9.5 L Hct 28.4 L MCV 91.0 MCH 30.4 MCHC 33.5 RDW Std Deviation 42.6 RDW Coeff of Brittany 13.3 Plt Count 171 MPV 12.2 Immature Gran % (Auto) 0.4 Neut % (Auto) 84.1 Lymph % (Auto) 8.4 [place] % (Auto) 6.8 Eos % (Auto) 0.1 Baso % (Auto) 0.2 Neut # (Auto) 15.61 H Lymph # (Auto) 1.56 [place] # (Auto) 1.27 H Eos # (Auto) 0.01 Baso # (Auto) 0.03 Immature Gran # (Auto) 0.07 H Cord ABG pH Cord ABG pCO2 Cord ABG pO2 Cord ABG HCO3 Cord ABG Base Excess Cord ABG O2 Sat Cord VBG pH Cord VBG pCO2 Cord VBG pO2 Cord VBG HCO3 Cord VBG Base Excess Cord VBG O2 Sat Blood Gas Comments POC Glucose 74 Blood Type Antibody Screen
[2022-03-30] MEDS: CARBOHYDRATES FOR HYPOGLYCEMIA PO PRN ×2 (08:07→17:16)
[2022-03-30] MEDS: PRENATAL VITAMIN 1 TAB PO SCH (08:17)
[2022-03-30] MEDS: DOCUSATE SODIUM 100 MG CAP PO SCH ×2 (08:17→19:42)
[2022-03-30] MEDS: SIMETHICONE 80 MG CHEW PO SCH ×4 (08:17→21:30)
[2022-03-30] MEDS: FERROUS SULFATE 325 MG TAB PO SCH (08:17)
[2022-03-30] MEDS: PANTOprazole 40 MG TAB PO SCH (08:46)
[2022-03-30] MEDS: INSULIN ASPART PER UNIT SC SCH ×3 (09:10→18:02)
[2022-03-30] MEDS ORDERED: INSULIN DETEMIR FLEXPEN/FLEX TOUCH 100 UNITS/ML 3ML SC ONE (10:17)
[2022-03-30] MEDS: DEXTROSE 50% 50 ML SYRINGE IV PRN ×2 (10:43→14:43)
[2022-03-30] MEDS: GLUCOSE 10 TAB/TUBE PO PRN ×3 (13:20→17:40)
--- NOTE | 2022-03-30 13:47 | Pharmacy Report ---
Pharmacy Glycemic Short Note 2 - Date of Service March 30, 2022 - Glycemic Short BSG Results (Last 24 hours): 03/29/22 03/29/22 03/29/22 14:30 21:29 22:47 POC Glucose 102 H 91 82 03/30/22 03/30/22 03/30/22 06:27 07:54 08:39 POC Glucose 74 67 L* 100 H 03/30/22 03/30/22 03/30/22 10:29 10:30 11:03 POC Glucose 49 L* 52 L* 133 H 03/30/22 03/30/22 03/30/22 12:02 13:16 13:17 POC Glucose 73 57 L* 61 L* OUTPATIENT ANTIDIABETIC REGIMEN: * Levemir 60 units daily, Novolog SSI - CF 50, CR 10 ASSESSMENT: * 36 year old now post , C section - pharmacy consulted to help with glycemic management. Patient type 1 DM. She received total of 60 units of levemir yesterday, BSGs low this morning at 67 mg/dL and then later this AM 49 mg/dL - treated per hypoglycemia protocol * Received 5 units of levemir this morning per providers orders (per patient request) * Discussed with RN, patient not feeling well - with nausea, given zofran, PO intake poorer, instructed to hold insulin at lunch time (patient only would qualify for 1 unit per scale) * Will hold further basal today as likely contributing to lower BSGs - would consider resuming this evening if PO intake improves and BSGs remain >140s later today PLAN FOR INPATIENT GLYCEMIC CONTROL: * Hold outpatient oral diabetes medications * Basal insulin * 0-20 units HS based upon BSG * Bolus insulin * NovoLog per scale ACHS or Q6hrs while NPO * Goal Range: Low 110 mg/dL - High 140 mg/dL * Correction Factor: 55 mg/dL/unit * Nutritional / Prandial insulin per carb ratio of 1 unit per 15 grams CHO consumed
[2022-03-30] MEDS: KETOROLAC 30 MG/ML VIAL IV PRN (14:17)
[2022-03-30] MEDS ORDERED: KETOROLAC 30 MG/ML VIAL IV PRN (15:21)
[2022-03-30] MEDS ORDERED: PROMETHAZINE HCL 25 MG in SODIUM CHLORIDE 0.9% 50 ML IV PRN (15:21)
[2022-03-30] MEDS ORDERED: ONDANSETRON INJ 2 MG/ML 2 ML VIAL IV PRN (15:21)
[2022-03-30] MEDS ORDERED: diphenhydrAMINE Capsule 25 MG CAP PO PRN (15:21)
[2022-03-30] MEDS ORDERED: diphenhydrAMINE 50 MG/ML VIAL IV PRN (15:21)
[2022-03-30] MEDS ORDERED: MEPERIDINE HCL 50 MG/ML CARP IV PRN (15:21)
[2022-03-30] MEDS: IBUPROFEN 600 MG TAB PO PRN (19:42)
[2022-03-30] MEDS: oxyCODONE/ACETAMINOPHEN 5mg/325mg TAB PO PRN ×2 (19:42→23:54)
[2022-03-31] MEDS ORDERED: INSULIN ASPART PER UNIT SC SCH (02:00)
--- NOTE | 2022-03-31 05:19 | Obstetrical Progress Note ---
Date of Service March 31, 2022 Assessment & Plan (1) delivery delivered: (2) Diabetes type 1, uncontrolled: Plan - Overall, feeling well and eating well today, she notes she is tired - Mother notes some difficulty with latch, but is optimistic - Urinating and passing gas appropriately, no bowel movement - Ambulating to bathroom without difficulty - Pain controlled w/ Ibuprofen 600 mg and Percocet Q4h - Routine post-op delivery progressing well - Hospitalist team following insulin/glucose management - low POC Glucose yesterday evening, elevated POC Glucose this AM, received 1 unit Insulin Aspart @ 0200 - Will anticipate discharge with baby Admission and Anticipated Discharge Date Admission Date: March 28, 2022 Supervising Physician Co-Signing Physician Notes Resident Physician Supervision Note: I interviewed and examined the patient. Discussed with Dr. Hutchison and agree with findings and plan as documented in the note. Any exceptions or clarifications are listed here: [ ] Documented By: Maral Garcia MD, FACOG Subjective Today 03/31: Patient is a 36 y/o female who is POD #2 following delivery at 39w4d. She reports feeling tired but otherwise well this morning. She is working to increase ambulation, voiding without difficulty, and passing gas. She at dinner lastnight without difficulty. Notes she had some low glucose levels yesterday evening. She feels her lochia is diminishing. Notes some difficulty with latch but is going to continue working to breast feed her son. - Ambulation - to bathroom and back - Voiding/Gill - voiding without difficulty - Gas/Stool - passing gas, no bowel movement - Diet - consuming DM1 diet, at full dinner, low sugars throughout last evening - Lochia - diminishing since delivery, light amount, no concerns - Feeding Type: breast and bottle feeding , no breast pain, some difficulty with infant latch - Pain Level: 5/10 pain, managed with Ibuprofen 600 mg and Percocet Review of Systems - Denies fever, chills, sweats - Denies shortness of breath, difficulty breathing, chest pain, palpitations, chest pressure. - Denies breast pain. - Denies dysuria. - Denies headache or changes in vision. Physical Exam Physical Exam: General: Alert, oriented. No acute distress. Cardiac: RRR, normal S1/S2, no murmurs/rubs/gallops. Respiratory: Non-labored, CTAB, no wheezes/rales/rhonchi. Symmetric chest rise. Abdomen: Soft, nontender, nondistended. Bowel sounds present. Uterus: Uterine fundus firm, palpable 2 cm below umbilicus. Tenderness with uterine palpation. Lower Extremities: 1+ lower extremity edema bilaterally. No deep calf pain. Donovan's negative bilaterally. Results & Data ([facility]) Vital Signs (Past 12 Hours) Vital Signs Temp Pulse Resp BP Pulse Ox O2 Del Method 03/30/22 23:50 36.6 C 98 H 18 116/74 96 Room Air 03/30/22 19:15 36.5 C 100 H 18 119/67 Resident Activity Tracking Resident Involvement: Resident Care Provided Care Provided: OB Delivery
[2022-03-31] MEDS: oxyCODONE/ACETAMINOPHEN 5mg/325mg TAB PO PRN ×3 (05:32→18:19)
[2022-03-31] MEDS: IBUPROFEN 600 MG TAB PO PRN ×4 (05:32→18:21)
[2022-03-31 06:51] LABS: Hematocrit (blood only) 27.9 % (34.1-44.9); Hemoglobin 9.3 g/dl (12.0-16.0)
[2022-03-31] MEDS: SIMETHICONE 80 MG CHEW PO SCH ×4 (08:19→19:52)
[2022-03-31] MEDS: FERROUS SULFATE 325 MG TAB PO SCH (08:20)
[2022-03-31] MEDS: DOCUSATE SODIUM 100 MG CAP PO SCH ×2 (08:20→19:52)
[2022-03-31] MEDS: PRENATAL VITAMIN 1 TAB PO SCH (08:20)
[2022-03-31] MEDS: INSULIN DETEMIR FLEXPEN/FLEX TOUCH 100 UNITS/ML 3ML SC SCH ×2 (08:39→21:12)
[2022-03-31] MEDS: PANTOprazole 40 MG TAB PO SCH (08:54)
[2022-03-31] MEDS: INSULIN ASPART PER UNIT SC SCH ×5 (08:55→21:11)
[2022-03-31] MEDS ORDERED: INSULIN DETEMIR FLEXPEN/FLEX TOUCH 100 UNITS/ML 3ML SC ONE (09:00)
--- NOTE | 2022-03-31 13:58 | Hospitalist Progress Note ---
Date of Service March 31, 2022 Assessment & Plan (1) Diabetic peripheral neuropathy associated with type 1 diabetes mellitus: Plan: DM1, hypoglycemic episodes: - Hypoglycemia protocol ordered. Can consider continuous D5 infusion if patient's blood sugars are repeatedly low. Sliding scale insulin for meals: - Goal BSG Range: Low 110 mg/dL, High 140 mg/dL. - Correction Factor: 55 mg/dL/unit. - Carbohydrate ratio = 15 g/unit. - BSGs qACHS if eating, with spot checks as needed. -> Detemir 20 units given; actually seems to be keeping her fairly stable. Aspart 6 units in AM, then 10 units at lunch given. Maybe need discharge on detemir 18 units & 18 units. (2) Hypoglycemia: Plan: See above (3) GERD without esophagitis: Plan: - Continue PPI. - Zofran as needed for nausea. Nausea could be multifactorial with recent C- section, reflux, hypoglycemia. Plan Dispo: L+D with medicine consult Admission and Anticipated Discharge Date Admission Date: March 28, 2022 Subjective Doing well today. Sugars are better controlled. Feeling much better. Reports no fevers/chills, chest pain, shortness of breath, abdominal pain, nausea, or vomiting. Physical Exam Constitutional: WD/WN, vitals as above Eyes: EOM intact bilaterally; no conjunctival abnormality ENMT: external ear and nose normal, oropharynx normal Neck: trachea midline, no thyromegaly normal visual inspection Respiratory: normal respiratory effort, lungs clear to auscultation no respiratory distress Cardiovascular: RRR, no murmur, no edema Gastrointestinal (Abdomen): Inspection/Auscultation: abdomen normal to inspection; abdomen not distended Musculoskeletal: no cyanosis or clubbing, extremities motor strength 5/5 Skin: no rashes, warm and dry Neurologic: moves all extremities and awake Psychiatric: Orientation: alert, oriented to person and cooperative Results & Data Results & Data ([facility]) Vital Signs (Past 12 Hours) Vital Signs Temp Pulse Resp BP Pulse Ox O2 Del Method 03/31/22 08:15 36.7 C 97 H 18 132/86 99 Room Air PG Care Time/CCT Total # of Minutes Spent Total Time Spent with Patient: Total time spent is greater than 50% in coordination of care (as documented) at patient's floor/unit and/or counseling patient: Coding Level of Care Code 46140 Subseq Hosp Care Lvl 2 Diagnoses Diabetic peripheral neuropathy associated with type 1 diabetes mellitus E10.42 Hypoglycemia E16.2 GERD without esophagitis K21.9
--- NOTE | 2022-03-31 14:16 | Pharmacy Report ---
Pharmacy Glycemic Short Note 2 - Date of Service March 31, 2022 - Glycemic Short BSG Results (Last 24 hours): 03/30/22 03/30/22 03/30/22 14:11 14:13 14:14 POC Glucose 61 L* 75 66 L* 03/30/22 03/30/22 03/30/22 14:25 15:05 17:12 POC Glucose 61 L* 143 H 53 L* 03/30/22 03/30/22 03/30/22 17:13 17:33 17:34 POC Glucose 53 L* 44 L* 48 L* 03/30/22 03/30/22 03/31/22 18:01 20:23 02:04 POC Glucose 80 71 153 H 03/31/22 03/31/22 08:18 12:50 POC Glucose 158 H 155 H OUTPATIENT ANTIDIABETIC REGIMEN: * Levemir 60 units daily (during ) -- Levemir 37 units daily prior to * Novolog SSI - CF 50, CR 10 ASSESSMENT: 03/31/22: * BSGs have recovered from persistent hypoglycemia yesterday, likely in the setting of too much basal insulin on 03/29. * Levemir re-initiated this morning somewhat conservatively. Pre-lunch BSG stable. * For discharge, patient might consider trial of BID Levemir (for total daily dose ~37 units/day) until she can monitor BSG patterns and during breast-feeding. Once stable, she could resume once-daily dosing. 03/30 * 36 year old now post , C section - pharmacy consulted to help with glycemic management. Patient type 1 DM. She received total of 60 units of levemir yesterday, BSGs low this morning at 67 mg/dL and then later this AM 49 mg/dL - treated per hypoglycemia protocol * Received 5 units of levemir this morning per providers orders (per patient request) * Discussed with RN, patient not feeling well - with nausea, given zofran, PO intake poorer, instructed to hold insulin at lunch time (patient only would qualify for 1 unit per scale) * Will hold further basal today as likely contributing to lower BSGs - would consider resuming this evening if PO intake improves and BSGs remain >140s later today PLAN FOR INPATIENT GLYCEMIC CONTROL: * Hold outpatient oral diabetes medications * Basal insulin * Levemir 20 units SQ x1 dose this morning * If patient is still here this evening, may give supplemental dose of Levemir, based on BSG * Bolus insulin * NovoLog per scale ACHS or Q6hrs while NPO * Goal Range: Low 110 mg/dL - High 140 mg/dL * Correction Factor: 55 mg/dL/unit * Nutritional / Prandial insulin per carb ratio of 1 unit per 15 grams CHO consumed
[2022-03-31] MEDS: ACETAMINOPHEN 325 MG TAB PO PRN (20:31)
[2022-04-01] MEDS: oxyCODONE/ACETAMINOPHEN 5mg/325mg TAB PO PRN ×3 (00:39→20:10)
[2022-04-01] MEDS: IBUPROFEN 600 MG TAB PO PRN ×3 (00:39→20:09)
--- NOTE | 2022-04-01 04:40 | Obstetrical Progress Note ---
Date of Service April 01, 2022 Assessment & Plan (1) delivery delivered: (2) Diabetes type 1, uncontrolled: Plan - Overall, feeling well. Continues to eat well without difficulty/ - Improved difficulty with latch, fatigue presenting barrier to feedings - Urinating via Gill and passing gas appropriately, no bowel movement - Ambulating to bathroom without difficulty - Pain controlled w/ Ibuprofen 600 mg and Percocet Q4h - Hospitalist team following insulin/glucose management - glucose well controlled throughout day yesterday, receiving Aspart, anticipating discharge on reduced insulin dosage - Will plan voiding trial this afternoon, if successful will discharge to home, if unsuccessful will replace Gill and re-trial tomorrow - Will anticipate discharge with baby Admission and Anticipated Discharge Date Admission Date: March 28, 2022 Supervising Physician Co-Signing Physician Notes Patient seen and evaluated degree of the above findings and plan. Gill replaced overnight for urinary retention. Discussed voiding trial at 12 or 24 hours post placement. Patient would like earlier trial and will plan for 4PM this afternoon. patient is stable for discharge if able to void. Subjective Today 04/01: Patient is a 36 y/o female who is POD #2 following delivery at 39w4d. Notes that last evening she developed a sense of dysuria and inability to empty her bladder. Overnight nursing performed bladder scan and straight cath. Retention continued into the AM and Gill catheter was placed this morning. - Ambulation - to bathroom and back - Voiding/Gill - Gill in place, no discomfort at present - Gas/Stool - passing gas, no bowel movement - Diet - consuming DM1 diet, ate full dinner, sugars well controlled yesterday - Lochia - diminishing since delivery, light amount, no concerns - Feeding Type: breast and bottle feeding infant, no breast pain, some difficulty with latch - improving - Pain Level: 3/10 pain, managed with Ibuprofen 600 mg and Percocet Review of Systems - Denies fever, chills, sweats - Denies shortness of breath, difficulty breathing, chest pain, palpitations, chest pressure. - Denies breast pain. - Endorses dysuria, frequency, and sensation of unemptied bladder - Denies headache or changes in vision. Physical Exam Physical Exam: General: Alert, oriented. No acute distress. Cardiac: RRR, normal S1/S2, no murmurs/rubs/gallops. Respiratory: Non-labored, CTAB, no wheezes/rales/rhonchi. Symmetric chest rise. Abdomen: Soft, nontender, nondistended. Bowel sounds present. Uterus: Uterine fundus firm, palpable 2 cm below umbilicus. Resolved tenderness with uterine palpation. Incision clean, without purulence, erythema, or drainage. Lower Extremities: No lower extremity edema bilaterally. No deep calf pain. Donovan's negative bilaterally. Results & Data ([facility]) Vital Signs (Past 12 Hours) Vital Signs Temp Pulse Resp BP Pulse Ox O2 Del Method 04/01/22 00:00 36.7 C 92 H 16 122/80 98 Room Air 03/31/22 19:57 36.7 C 102 H 16 121/79 98 Room Air Resident Activity Tracking Resident Involvement: Resident Care Provided Care Provided: OB Delivery
[2022-04-01] MEDS: SIMETHICONE 80 MG CHEW PO SCH ×4 (08:45→21:41)
[2022-04-01] MEDS: PRENATAL VITAMIN 1 TAB PO SCH (08:46)
[2022-04-01] MEDS: FERROUS SULFATE 325 MG TAB PO SCH (08:46)
[2022-04-01] MEDS: DOCUSATE SODIUM 100 MG CAP PO SCH ×2 (08:46→21:41)
[2022-04-01] MEDS: INSULIN ASPART PER UNIT SC SCH ×4 (08:47→21:30)
[2022-04-01] MEDS: PANTOprazole 40 MG TAB PO SCH (08:48)
[2022-04-01] MEDS ORDERED: INSULIN DETEMIR FLEXPEN/FLEX TOUCH 100 UNITS/ML 3ML SC ONE (09:00)
--- NOTE | 2022-04-01 14:07 | Pharmacy Report ---
Pharmacy Glycemic Short Note 2 - Date of Service April 01, 2022 - Glycemic Short BSG Results (Last 24 hours): 03/31/22 03/31/22 04/01/22 17:17 21:10 08:02 POC Glucose 84 113 H 84 04/01/22 11:52 POC Glucose 75 OUTPATIENT ANTIDIABETIC REGIMEN: * Levemir 60 units daily (during ) -- Levemir 37 units daily prior to * Novolog SSI - CF 50, CR 10 ASSESSMENT: 04/01/22: * Patient received a total of 42 units of insulin yesterday, of which 20 units were levemir * Fasting BSG 84 mg/dL - softer side, plan to decrease ~10% this AM and trial levemir 18 units * Lunch BSG trending downward, loosened CR for lunch check 03/31/22: * BSGs have recovered from persistent hypoglycemia yesterday, likely in the setting of too much basal insulin on 03/29. * Levemir re-initiated this morning somewhat conservatively. Pre-lunch BSG stable. * For discharge, patient might consider trial of BID Levemir (for total daily dose ~37 units/day) until she can monitor BSG patterns and during breast-feeding. Once stable, she could resume once-daily dosing. 03/30 * 36 year old now post , C section - pharmacy consulted to help with glycemic management. Patient type 1 DM. She received total of 60 units of levemir yesterday, BSGs low this morning at 67 mg/dL and then later this AM 49 mg/dL - treated per hypoglycemia protocol * Received 5 units of levemir this morning per providers orders (per patient request) * Discussed with RN, patient not feeling well - with nausea, given zofran, PO intake poorer, instructed to hold insulin at lunch time (patient only would qualify for 1 unit per scale) * Will hold further basal today as likely contributing to lower BSGs - would consider resuming this evening if PO intake improves and BSGs remain >140s later today PLAN FOR INPATIENT GLYCEMIC CONTROL: * Hold outpatient oral diabetes medications * Basal insulin * Levemir 18 units daily * Bolus insulin * NovoLog per scale ACHS or Q6hrs while NPO * Goal Range: Low 110 mg/dL - High 140 mg/dL * Correction Factor: 55 mg/dL/unit * Nutritional / Prandial insulin per carb ratio of 1 unit per 15 grams CHO consumed
--- NOTE | 2022-04-01 20:24 | Communication Note ---
Date of Service: April 01, 2022 Patient unfortunately failed her voiding trial. Back filled with 300cc, was able to void about 250 but then had a residual of over 200. Therefore, will replace hilario as high chance of retention. Plan to teach hilario care and plan d/c tomorrow. Then will have trial in the office on . Will send task to ob office for this to be done. Patient expresses understanding of the plan.
[2022-04-01] MEDS: ACETAMINOPHEN 325 MG TAB PO PRN (21:43)
--- NOTE | 2022-04-02 05:15 | Obstetrical Progress Note ---
Date of Service April 02, 2022 Assessment & Plan (1) delivery delivered: (2) Diabetes type 1, uncontrolled: Plan - Overall, feeling well. Continues to eat well without difficulty - Improved difficulty with latch, currently pumping and breast feeding - Patient failed voiding trial.Hilario replaced d/t high likelihood of continued retention. - Hilario education to be provided to day prior to d/c today, will plan voiding trial in the office on - Urinating via Hilario and passing gas appropriately, no bowel movement - Ambulating to around room without difficulty - Pain controlled w/ Ibuprofen 600 mg and Percocet Q4h - Hospitalist team following insulin/glucose management - anticipating discharge on 18 units Detemir QAM - Will anticipate discharge with baby today Admission and Anticipated Discharge Date Admission Date: March 28, 2022 Supervising Physician Co-Signing Physician Notes Resident Physician Supervision Note: I interviewed and examined the patient. Discussed with Dr. Hutchison and agree with findings and plan as documented in the note. Any exceptions or clarifications are listed here: Doing well. PLan d/c home with Hilario. Have plan for hilario trial in the office on , they will call them. Instructions reviewed. Documented By: Jessica Mccray MD, FACOG Subjective Today 04/02: Patient is a 36 y/o female who is POD #4 following delivery at 39w4d. Patient states that she is feeling well today and would like to go home. Patient expresses understanding with Hilario care and follow up . - Ambulation - around room without difficulty - Voiding/Hilario - Hilario in place, no discomfort at present - Gas/Stool - passing gas, no bowel movement - Diet - consuming DM1 diet, ate full dinner, sugars well controlled yesterday - Lochia - diminishing since delivery, light amount, no concerns - Infant Feeding Type: breast and bottle feeding (pumping), no breast pain - Pain Level: 4/10 pain, managed with Ibuprofen 600 mg and Percocet Review of Systems - Denies fever, chills, sweats - Denies shortness of breath, difficulty breathing, chest pain, palpitations, chest pressure. - Denies breast pain. - Improved dysuria and sensation of unemptied bladder - Denies headache or changes in vision. Physical Exam Physical Exam: General: Alert, oriented. No acute distress. Cardiac: RRR, normal S1/S2, no murmurs/rubs/gallops. Respiratory: Non-labored, CTAB, no wheezes/rales/rhonchi. Symmetric chest rise. Abdomen: Soft, nontender, nondistended. Bowel sounds present. Uterus: Uterine fundus firm, palpable 3 cm below umbilicus. Mild tenderness with uterine palpation. Incision clean, without purulence, erythema, or drainage. Lower Extremities: No lower extremity edema bilaterally. No deep calf pain. Donovan's negative bilaterally. Results & Data ([facility]) Vital Signs (Past 12 Hours) Vital Signs Temp Pulse Resp BP Pulse Ox O2 Del Method 04/02/22 00:00 36.5 C 93 H 16 116/75 97 Room Air 04/01/22 20:00 36.8 C 103 H 16 122/80 97 Room Air Resident Activity Tracking Resident Involvement: Resident Care Provided Care Provided: OB Delivery
[2022-04-02] MEDS: PRENATAL VITAMIN 1 TAB PO SCH (08:11)
[2022-04-02] MEDS: SIMETHICONE 80 MG CHEW PO SCH (08:11)
[2022-04-02] MEDS: FERROUS SULFATE 325 MG TAB PO SCH (08:11)
[2022-04-02] MEDS: DOCUSATE SODIUM 100 MG CAP PO SCH (08:11)
[2022-04-02] MEDS: IBUPROFEN 600 MG TAB PO PRN (08:12)
[2022-04-02] MEDS: INSULIN ASPART PER UNIT SC SCH (08:13)
--- NOTE | 2022-04-02 08:15 | Pharmacy Report ---
Pharmacy Glycemic Short Note 2 - Date of Service April 02, 2022 - Glycemic Short BSG Results (Last 24 hours): 04/01/22 04/01/22 04/02/22 11:52 17:35 07:43 POC Glucose 75 157 H 145 H OUTPATIENT ANTIDIABETIC REGIMEN: * Levemir 60 units daily (during ) -- Levemir 37 units daily prior to * Novolog SSI - CF 50, CR 10 ASSESSMENT: 04/02/22: * Patient received total fo 27 units of insulin yesterday, of which 18 units were levemir * Fasting BSG 145 mg/dL -will continue with levemir 18 units daily (today day 2 of dosing) * No change to CF/CR * Discussed with provider, feel that it is reasonable to continue the levemir 18 units daily on discharge. Would recommend followup with [facility] outpatient as basal insulin may need titrated. Recommended using a slightly looser CR then prior to admission as BSGs have been stable 04/01/22: * Patient received a total of 42 units of insulin yesterday, of which 20 units were levemir * Fasting BSG 84 mg/dL - softer side, plan to decrease ~10% this AM and trial levemir 18 units * Lunch BSG trending downward, loosened CR for lunch check 03/31/22: * BSGs have recovered from persistent hypoglycemia yesterday, likely in the setting of too much basal insulin on 03/29. * Levemir re-initiated this morning somewhat conservatively. Pre-lunch BSG stable. * For discharge, patient might consider trial of BID Levemir (for total daily dose ~37 units/day) until she can monitor BSG patterns and during breast-feeding. Once stable, she could resume once-daily dosing. 03/30 * 36 year old now post , C section - pharmacy consulted to help with glycemic management. Patient type 1 DM. She received total of 60 units of levemir yesterday, BSGs low this morning at 67 mg/dL and then later this AM 49 mg/dL - treated per hypoglycemia protocol * Received 5 units of levemir this morning per providers orders (per patient request) * Discussed with RN, patient not feeling well - with nausea, given zofran, PO intake poorer, instructed to hold insulin at lunch time (patient only would qualify for 1 unit per scale) * Will hold further basal today as likely contributing to lower BSGs - would consider resuming this evening if PO intake improves and BSGs remain >140s later today PLAN FOR INPATIENT GLYCEMIC CONTROL: * Hold outpatient oral diabetes medications * Basal insulin * Levemir 18 units daily * Bolus insulin * NovoLog per scale ACHS or Q6hrs while NPO * Goal Range: Low 110 mg/dL - High 140 mg/dL * Correction Factor: 55 mg/dL/unit * Nutritional / Prandial insulin per carb ratio of 1 unit per 15 grams CHO consumed
[2022-04-02] MEDS ORDERED: INSULIN DETEMIR FLEXPEN/FLEX TOUCH 100 UNITS/ML 3ML SC SCH (09:00)
[2022-04-02] MEDS: oxyCODONE/ACETAMINOPHEN 5mg/325mg TAB PO PRN (10:54)
--- NOTE | 2022-04-03 16:26 | Discharge Summary ---
Date of Service April 03, 2022 Admission HPI Per Admitting Provider 36 y/o G1 at 39 4/7 wga presents for IOL for T1DM. +FM; denies ctx, LOF, VB PNI: T1DM Past [employer] Hx: G1 09/2019 neg cytology Denies hx STIs Discharge Data Consultations 03/28/22 17:22 Consult Anesthesiology Stat 03/29/22 18:20 Consult Anesthesiology Stat 03/29/22 21:30 Consult Hospitalist Routine Procedures Performed Operation Date: 03/29/22 18:30 Actual Procedures p Section in LD - Maral Garcia MD Hospital Course (1) delivery delivered: Patient admitted for IOL. FHT Cat 2 through most of induction. Type 1 Diabetes also, managed at home with CGM but SQ insulin without a pump. Used glucose/insulin coinfusion protocol here on L&D to achieve stable BG 100-120 through most of labor with minimal deviations from that range. Patient was adv ised to move to due to Cat 2 FHT when she was 8-9cm dilated. She was prepped for and upon attempt to remove the scalp electrode prior to moving to the OR, she was found to have achieved complete dilation. Test push was allowed, and she performed well and requested to try a second stage of labor. After an hour she announced fatigue and unwillingness to continue, and was then performed. Delivery was uncomplicated and the patient delivered a healthy . Her recovery was complicated by hypoglycemia and urinary retention. The patient's home doses of levemir needed to be adjusted significantly downwards in the setting, from 60u reported on admission to 18u on discharge. Her bladder trial was scheduled for the 03 of April in the outpatient office, and she went home with a Gill catheter and leg bag, pain medication, and a follow up plan for out patient care. (2) Diabetes type 1, uncontrolled: Coding Level of Care Code None Diagnoses delivery delivered O82 Diabetes type 1, uncontrolled E10.65
== END 2022-04-02 11:50 | disposition home or self-care (01) | DRG 786 ==
LOC: 4S1 16:56 → 4E2 03-30 00:48
DX: Z79.899 Other long term (current) drug therapy; Z79.82 Long term (current) use of aspirin; Z37.0 Single live birth; O99.63 Diseases of the digestive system complicating the puerperium; O24.02 Pre-existing type 1 diabetes mellitus, in childbirth; Z79.4 Long term (current) use of insulin; O77.0 Labor and delivery complicated by meconium in amniotic fluid; E10.649 Type 1 diabetes mellitus with hypoglycemia without coma; O36.8330 Maternal care for abnormalities of the fetal heart rate or rhythm, third trimester, not applicable or unspecified; E10.42 Type 1 diabetes mellitus with diabetic polyneuropathy; O75.81 Maternal exhaustion complicating labor and delivery; K21.9 Gastro-esophageal reflux disease without esophagitis; Z3A.39 39 weeks gestation of pregnancy

== ENCOUNTER 2025-04-23 10:26 | Observation (INO) ==
[2025-04-23] MEDS: SODIUM CHLORIDE 0.9% 1,000 ML IV ONE (11:05)
--- NOTE | 2025-04-23 11:12 | Emergency Department Note ---
History of Present Illness General Chief complaint: Illness Stated complaint: VOMITING, ABD PAIN, TYPE 1 DIABETIC Time Seen by Provider: 04/23/25 10:44 History of Present Illness Maximum Pain Intensity: 9 Patient is a 40-year-old female with past medical history significant for type 1 diabetes on insulin who presents to the emergency department for evaluation of nausea, vomiting and elevated blood sugar readings at home. She states "I think I'm in DKA." She states that she was feeling well and in her usual state of health yesterday and this morning until around 0700, roughly 3 hours ago. She developed back pain, malaise, nausea, vomiting and diarrhea. She reports multiple episodes of vomiting, and several episodes of diarrhea. No blood. She checked her sugar at home and it was 230. She did not administer any insulin. She has not tried any other medications for her symptoms. She states that this feels similar to prior episodes of DKA. She states the abdominal pain is primarily on the left side. Back pain is diffuse across the entire back. No chest pain or shortness of breath. No urinary symptoms. Last menstrual period was 2 weeks ago, denies concern for . Home Medications Medication Instructions Recorded Confirmed Type glucagon HCl 1 mg solution for 1 mg IM UD PRN Emergency 02/04/21 04/23/25 History injection (Glucagon (HCl) Emergency Kit) blood-glucose sensor (Dexcom G6 #1 ea 03/22/21 09/16/24 Rx Sensor device) naproxen 500 mg tablet 500 mg PO BID PRN pain #14 tabs 05/29/23 04/23/25 Rx pen needle, diabetic 32 gauge x #400 ea 03/17/24 09/16/24 Rx 5/32" (BD Ailin 2nd Gen Pen Needle) insulin glargine 100 unit/mL (3 45 unit (0.45 mL) subcut DAILY #45 08/08/24 04/23/25 Rx mL) subcutaneous pen (Lantus mL Solostar U-100 Insulin) blood sugar diagnostic 04/23/25 04/23/25 History insulin aspart U-100 100 unit/mL 1 sliding scale dose subcut 04/23/25 04/23/25 History (3 mL) subcutaneous pen (Novolog .complex FlexPen U-100 Insulin aspart) Allergies Allergy/AdvReac Type Severity Reaction Status Date / Time No Known Allergies Allergy Verified 12/23/24 12:15 Past Med/Surg History Problem List (Updated 04/23/25 @ 16:50 by Sarah Rao) Hyperglycemia (Acute) Nausea vomiting and diarrhea (Acute) Dehydration Candidal vulvovaginitis Vulvar itching De Quervain's tenosynovitis, right Medical History GERD without esophagitis Diabetes type 1, uncontrolled Depression Proliferative diabetic retinopathy associated with type 1 diabetes mellitus Vitamin D deficiency History of HPV infection Benign nevus Bulimia Epidermal inclusion cyst Surgical History S/P section H/O LEEP H/O oral surgery Family History Aunt Breast cancer Maternal Sister Biliary atresia Mother Ovarian cyst Denies family history of Ovarian cancer Prostate cancer Diabetes Myocardial infarction Colorectal cancer Hypertension Social History Smoking Status: Never smoker Tobacco Type: Declines Second Hand Exposure: No; Do You Dip or Chew Tobacco: No; Hx Alcohol Use: No Hx Substance Use: No Preferred Language: Honduran Communication Ability: Effective Visual Impairment: No Limitations Hearing Ability: Normal Sleep Tech Required: No Beliefs That Will Affect Care: None marital status: marital status details: Jermaine Torres (28) [phone] Current Living Situation: Spouse Current Living Situation Comment: - Jermaine current occupational status: employed 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 How many Children do You have: 1 Feels Safe at Home: Yes Childhood Exposure to Second-Hand Smoke: No Diet: regular Diet Comment: regular caffeine: No Dental Care, Regularly: Yes Physical Activity Frequency: Does not Exercise Seatbelt Use: sometimes Sunscreen Use: Yes Do you think of yourself as: straight/heterosexual Gender Identity: Female Assistive Devices: Glasses Review of Systems A total of 10 systems reviewed and were otherwise negative Physical Exam Vital Signs Vital Signs - 24 hr 04/23/25 10:39 04/23/25 10:54 04/23/25 10:55 Temperature 36.7 C Temperature Source Temporal Artery Scan Pulse Rate 87 93 H Pulse Rate [Apical] 97 H Pulse Rate from SpO2 Sensor Pulse Strength [Apical] Normal Respiratory Rate 18 17 12 Respiratory Effort / Characteristics Non-Labored Spontaneous Non-Labored Spontaneous Respiratory Depth Normal Normal Respiratory Pattern Regular Regular Blood Pressure 125/83 118/62 Blood Pressure [Right Arm] 128/93 Blood Pressure Mean 97 80 Blood Pressure Mean [Right Arm] 104 Blood Pressure Position [Right Arm] Lying Pulse Oximetry 100 100 100 Oxygen Delivery Method Room Air Room Air Room Air Sepsis Recent Fever Within 48 Hours No Sepsis New/Unexplained Change in Mental Status N/A Sepsis Action Taken by Nursing No Action Required 04/23/25 11:00 04/23/25 11:06 04/23/25 11:08 Temperature Temperature Source Pulse Rate 88 85 Pulse Rate [Apical] Pulse Rate from SpO2 Sensor Pulse Strength [Apical] Respiratory Rate 14 15 Respiratory Effort / Characteristics Respiratory Depth Respiratory Pattern Blood Pressure 128/93 Blood Pressure [Right Arm] Blood Pressure Mean 98 Blood Pressure Mean [Right Arm] Blood Pressure Position [Right Arm] Pulse Oximetry Oxygen Delivery Method Sepsis Recent Fever Within 48 Hours Sepsis New/Unexplained Change in Mental Status Sepsis Action Taken by Nursing 04/23/25 11:30 04/23/25 11:30 04/23/25 11:30 Temperature Temperature Source Pulse Rate 89 Pulse Rate [Apical] Pulse Rate from SpO2 Sensor 89 Pulse Strength [Apical] Respiratory Rate 13 Respiratory Effort / Characteristics Respiratory Depth Respiratory Pattern Blood Pressure 110/69 110/69 Blood Pressure [Right Arm] Blood Pressure Mean 84 84 Blood Pressure Mean [Right Arm] Blood Pressure Position [Right Arm] Pulse Oximetry 100 Oxygen Delivery Method Sepsis Recent Fever Within 48 Hours Sepsis New/Unexplained Change in Mental Status Sepsis Action Taken by Nursing 04/23/25 11:51 04/23/25 11:54 04/23/25 12:00 Temperature Temperature Source Pulse Rate 99 H 104 H Pulse Rate [Apical] Pulse Rate from SpO2 Sensor 99 H 104 H Pulse Strength [Apical] Respiratory Rate 19 18 Respiratory Effort / Characteristics Respiratory Depth Respiratory Pattern Blood Pressure 121/68 Blood Pressure [Right Arm] Blood Pressure Mean 88 Blood Pressure Mean [Right Arm] Blood Pressure Position [Right Arm] Pulse Oximetry 100 100 Oxygen Delivery Method Sepsis Recent Fever Within 48 Hours Sepsis New/Unexplained Change in Mental Status Sepsis Action Taken by Nursing 04/23/25 12:00 04/23/25 12:03 04/23/25 12:09 Temperature Temperature Source Pulse Rate 103 H 102 H Pulse Rate [Apical] Pulse Rate from SpO2 Sensor 102 H 104 H Pulse Strength [Apical] Respiratory Rate 17 18 Respiratory Effort / Characteristics Respiratory Depth Respiratory Pattern Blood Pressure 121/68 Blood Pressure [Right Arm] Blood Pressure Mean 88 Blood Pressure Mean [Right Arm] Blood Pressure Position [Right Arm] Pulse Oximetry 99 100 Oxygen Delivery Method Sepsis Recent Fever Within 48 Hours Sepsis New/Unexplained Change in Mental Status Sepsis Action Taken by Nursing 04/23/25 12:13 04/23/25 12:30 04/23/25 12:30 Temperature Temperature Source Pulse Rate 98 H Pulse Rate [Apical] Pulse Rate from SpO2 Sensor Pulse Strength [Apical] Respiratory Rate Respiratory Effort / Characteristics Respiratory Depth Respiratory Pattern Blood Pressure 117/70 117/70 Blood Pressure [Right Arm] Blood Pressure Mean 87 87 Blood Pressure Mean [Right Arm] Blood Pressure Position [Right Arm] Pulse Oximetry Oxygen Delivery Method Sepsis Recent Fever Within 48 Hours Sepsis New/Unexplained Change in Mental Status Sepsis Action Taken by Nursing 04/23/25 12:39 04/23/25 12:51 04/23/25 13:01 Temperature Temperature Source Pulse Rate 94 H 104 H Pulse Rate [Apical] Pulse Rate from SpO2 Sensor 95 H Pulse Strength [Apical] Respiratory Rate 13 17 Respiratory Effort / Characteristics Respiratory Depth Respiratory Pattern Blood Pressure 116/76 Blood Pressure [Right Arm] Blood Pressure Mean 81 Blood Pressure Mean [Right Arm] Blood Pressure Position [Right Arm] Pulse Oximetry 100 Oxygen Delivery Method Sepsis Recent Fever Within 48 Hours Sepsis New/Unexplained Change in Mental Status Sepsis Action Taken by Nursing 04/23/25 13:21 04/23/25 14:00 Temperature Temperature Source Pulse Rate 99 H 104 H Pulse Rate [Apical] Pulse Rate from SpO2 Sensor 99 H Pulse Strength [Apical] Respiratory Rate 22 19 Respiratory Effort / Characteristics Respiratory Depth Respiratory Pattern Blood Pressure 125/74 Blood Pressure [Right Arm] Blood Pressure Mean 91 Blood Pressure Mean [Right Arm] Blood Pressure Position [Right Arm] Pulse Oximetry 100 100 Oxygen Delivery Method Room Air Sepsis Recent Fever Within 48 Hours Sepsis New/Unexplained Change in Mental Status Sepsis Action Taken by Nursing CONSTITUTIONAL: Patient is an ill-appearing 40-year-old female who is awake and alert and laying on the gurney, she is vomiting into an emesis bag. EYES: Pupils equal, round, reactive to light and accommodation. EOMs intact without nystagmus. Sclera are anicteric. ENT: Tympanic membranes intact, with normal landmarks. External canals are clear. Oral and nasopharynx are clear. Mucous membranes are moist, no lesions, tongue and gums appear normal. CARDIOVASCULAR: Regular rate and rhythm. Peripheral pulses easy to palpable. RESPIRATORY: Breath sounds equal and clear to auscultation. GI: Bowel sounds are present. Abdomen is soft, nondistended, diffusely tender to palpation, without guarding or rebound. MUSCULOSKELETAL: Full range of motion of extremities x 4 with good strength. No cyanosis, edema, joint tenderness or swelling. No deformity. INTEGUMENTARY: No lesions or rash, normal skin turgor. Course Course The patient was seen and assessed as above. External medical records are reviewed. She presents to the emergency department for evaluation of nausea, vomiting, diarrhea and hyperglycemia and concern for DKA. Patient history, presentation and ED workup reviewed with attending physician, Dr. Robles who agrees with the ED workup. IV lock was initiated and laboratory studies were collected. CBC with differential, CMP, magnesium, VBG, urinalysis, serum hCG and hourly BSG's were obtained. She was initially treated with a liter bolus of normal saline solution, and Pepcid 20 mg IV, Toradol 15 mg IV and Zofran 4 mg IV. Diagnostics, as interpreted by me: Laboratory studies: Mildly elevated white count of 14,400 with left shift. H&H 11.7 and 36.5, normal platelet count. VBG notes pH 4.34. Sodium 135, potassium 4.1, chloride 102, carbon dioxide 26, BUN 11 and creatinine 0.71. Initial BSG 262, repeat 271. Magnesium slightly low at 1.5. No transaminitis. Serum hCG negative. Urine microscopy notes glucosuria, ketonuria and blood, but no other indicators for infection. Cardiac monitoring: An order was placed for continuous cardiac monitoring. The monitor shows a NSR at a rate of 94 per my interpretation. All laboratory studies were reviewed with Dr. Robles. Etiology of the patient's symptoms is unclear at this time. She does not appear to be in juan DKA at this time. Glucose mildly elevated, but no anion gap. VBG notes acidosis, but likely falsely elevated due to the venous study. Did not initiate IV insulin at this time, pending hospitalist evaluation. Discussed the possibility of gastritis, infectious/inflammatory colitis/enteritis, foodborne illness, among others as the source. Nonetheless, given her ill appearance and comorbidities I do feel that inpatient care is likely indicated. Additional liter of fluid was ordered. Patient reviewed with ED caseworker intake, and consultation placed with the [facility] hospitalist service for possible inpatient care. Patient was reviewed with R1, Dr. Sim. The patient was reassessed. She reports she is not feeling any better. She still nauseous and vomiting. Laboratory studies were reviewed with her. At this time, repeat BSG 271. She was ordered IV magnesium and IV Phenergan. Further inpatient care reviewed with her and she was amenable. She is aware that hospitalist evaluation is pending. Chronic conditions affecting care: Type 1 diabetes Differential diagnosis: GERD, gastritis, esophagitis, peptic ulcer disease, infectious versus inflammatory colitis/enteritis, foodborne illness, biliary pathology, appendicitis, bowel obstruction, perforation, abscess, mass or malignancy, electrolyte or metabolic abnormality, dehydration, DKA among others. Administered Medications Discontinued Medications Sodium Chloride (Nss) 1,000 mls @ 999 mls/hr IV .Q1H1M ONE Stop: 04/23/25 11:56 Last Infusion: 04/23/25 12:28 Dose: Infused Documented By: [facility] [place] Admin: 04/23/25 11:05 Dose: 999 mls/hr Documented By: [facility] [place] Famotidine (Pepcid 20mg Iv Push) 20 mg in 5 mls @ 2.5 mls/min IV NOW STA Stop: 04/23/25 11:11 Last Admin: 04/23/25 11:30 Dose: 2.5 mls/min Documented By: [facility] [place] Sodium Chloride (Nss) 1,000 mls @ 999 mls/hr IV .Q1H1M GERALD Stop: 04/23/25 13:05 Last Infusion: 04/23/25 13:46 Dose: Infused Documented By: [facility] [place] Admin: 04/23/25 12:28 Dose: 999 mls/hr Documented By: [facility] [place] Promethazine HCl (Phenergan) 12.5 mg in 50.5 mls @ 202 mls/hr IV NOW STA Stop: 04/23/25 13:12 Last Infusion: 04/23/25 14:00 Dose: Infused Documented By: [facility] [place] Admin: 04/23/25 13:38 Dose: 202 mls/hr Documented By: [facility] [place] Magnesium Sulfate/Dextrose (Magnesium Sulfate / D5w) 1 gm in 100 mls @ 100 mls/hr IV NOW STA Stop: 04/23/25 14:02 Last Infusion: 04/23/25 15:07 Dose: Infused Documented By: manuel Admin: 04/23/25 13:44 Dose: 100 mls/hr Documented By: manuel Insulin Pump (Dc Home Insulin Pump) 1 each N/A NOW STA Stop: 04/23/25 10:57 Last Admin: 04/23/25 11:21 Dose: Not Given Documented By: manuel Ketorolac Tromethamine (Ketorolac Tromethamine 15 Mg/Ml Vial) 15 mg IV NOW STA Stop: 04/23/25 11:11 Last Admin: 04/23/25 11:29 Dose: 15 mg Documented By: manuel Ondansetron HCl (Ondansetron Inj 2 Mg/Ml 2 Ml Vial) 4 mg IV NOW STA Stop: 04/23/25 11:11 Last Admin: 04/23/25 11:30 Dose: 4 mg Documented By: manuel Medical Decision Making Differential Diagnosis See ED Course. Medical Records Attestation: I reviewed the patient's medical records. Home Medications Current Medication List: was personally reviewed by me Laboratory Data Attestation: I reviewed the patient's lab results. 04/23/25 11:02 04/23/25 11:02 Lab Results 04/23/25 04/23/25 04/23/25 Range/Units 10:56 11:02 11:24 WBC 13.46 H (4.8-10.8) K/ul RBC 4.25 (4.20-5.40) M/uL Hgb 11.7 L (12.0-16.0) g/dl Hct 36.5 L (37.0-47.0) % MCV 85.9 (80.0-100.0) fL MCH 27.5 (25.0-34.0) pg MCHC 32.1 (32.0-36.0) g/dL RDW Std Deviation 41.4 (36.4-46.3) fL RDW Coeff of Brittany 13.3 (11.5-14.5) % Plt Count 338 (130-400) K/uL MPV 10.0 (9.4-12.4) fL Immature Gran % (Auto) 0.4 % Neut % (Auto) 83.4 % Lymph % (Auto) 11.0 % [place] % (Auto) 4.6 % Eos % (Auto) 0.3 % Baso % (Auto) 0.3 % Neut # (Auto) 11.22 H (1.40-6.50) K/uL Lymph # (Auto) 1.48 (1.20-3.40) K/uL [place] # (Auto) 0.62 H (0.11-0.59) K/uL Eos # (Auto) 0.04 (0.00-0.50) K/uL Baso # (Auto) 0.04 (0.00-0.20) K/uL Immature Gran # (Auto) 0.06 (0.01-0.20) K/uL VBG pH 7.34 L (7.36-7.41) VBG pCO2 47 (38-50) mmHg VBG pO2 31 mmHg VBG HCO3 25 mmol/L VBG O2 Saturation < 60.0 % VBG Base Excess -0.8 mEq/L Sodium 135 L (136-145) mmol/L Potassium 4.1 (3.5-5.1) mmol/L Chloride 102 (98-107) mmol/L Carbon Dioxide 26 (21-32) mmol/L Anion Gap 7 (3-11) BUN 11 (6-23) mg/dl Creatinine 0.71 (0.6-1.2) mg/dl Est Cr Clr Drug Dosing 112.9 ml/min eGFR 111.54 BUN/Creatinine Ratio 15.5 (10-20) Glucose 309 H* (70-99(Fasting)) mg/dl POC Glucose 262 H (70-99) mg/dl Calcium 9.3 (8.6-10.3) mg/dl Magnesium 1.5 L (1.7-2.4) mg/dl Total Bilirubin 0.7 (0.2-1.0) mg/dl AST 16 (13-39) U/L ALT 8 (7-52) U/L Alkaline Phosphatase 102 (34-104) U/L Total Protein 7.7 (6.0-8.3) gm/dl Albumin 4.2 (3.4-5.0) gm/dl Globulin 3.5 (2.5-4.0) gm/dl Albumin/Globulin Ratio 1.2 (0.9-2) Lipase < 3 L (11-82) U/L HCG, Qual Negative (Negative) Urine Color Yellow Urine Appearance Clear (Clear) Urine pH 6.5 (4.5-7.5) Ur Specific [place] 1.020 (1.000-1.030) Urine Protein Negative (Negative) Urine Glucose (UA) 3+ H (Negative) Urine Ketones 2+ H (Negative) Urine Blood 3+ H (Negative) Urine Nitrite Negative (Negative) Urine Bilirubin Negative (Negative) Urine Urobilinogen Negative (Negative) Ur Leukocyte Esterase Negative (Negative) Urine WBC (Auto) 0-5 (0-5) /hpf Urine RBC (Auto) >20 H (0-2) /hpf U Hyaline Cast (Auto) 0-2 (0-2) /lpf U Epithel Cells (Auto) 0-2 (0-2) /hpf Urine Bacteria (Auto) None Seen (None Seen) Urine Comment 04/23/25 04/23/25 Range/Units 12:27 13:33 WBC (4.8-10.8) K/ul RBC (4.20-5.40) M/uL Hgb (12.0-16.0) g/dl Hct (37.0-47.0) % MCV (80.0-100.0) fL MCH (25.0-34.0) pg MCHC (32.0-36.0) g/dL RDW Std Deviation (36.4-46.3) fL RDW Coeff of Brittany (11.5-14.5) % Plt Count (130-400) K/uL MPV (9.4-12.4) fL Immature Gran % (Auto) % Neut % (Auto) % Lymph % (Auto) % [place] % (Auto) % Eos % (Auto) % Baso % (Auto) % Neut # (Auto) (1.40-6.50) K/uL Lymph # (Auto) (1.20-3.40) K/uL [place] # (Auto) (0.11-0.59) K/uL Eos # (Auto) (0.00-0.50) K/uL Baso # (Auto) (0.00-0.20) K/uL Immature Gran # (Auto) (0.01-0.20) K/uL VBG pH (7.36-7.41) VBG pCO2 (38-50) mmHg VBG pO2 mmHg VBG HCO3 mmol/L VBG O2 Saturation % VBG Base Excess mEq/L Sodium (136-145) mmol/L Potassium (3.5-5.1) mmol/L Chloride (98-107) mmol/L Carbon Dioxide (21-32) mmol/L Anion Gap (3-11) BUN (6-23) mg/dl Creatinine (0.6-1.2) mg/dl Est Cr Clr Drug Dosing ml/min eGFR BUN/Creatinine Ratio (10-20) Glucose (70-99(Fasting)) mg/dl POC Glucose 271 H 259 H (70-99) mg/dl Calcium (8.6-10.3) mg/dl Magnesium (1.7-2.4) mg/dl Total Bilirubin (0.2-1.0) mg/dl AST (13-39) U/L ALT (7-52) U/L Alkaline Phosphatase (34-104) U/L Total Protein (6.0-8.3) gm/dl Albumin (3.4-5.0) gm/dl Globulin (2.5-4.0) gm/dl Albumin/Globulin Ratio (0.9-2) Lipase (11-82) U/L HCG, Qual (Negative) Urine Color Urine Appearance (Clear) Urine pH (4.5-7.5) Ur Specific [place] (1.000-1.030) Urine Protein (Negative) Urine Glucose (UA) (Negative) Urine Ketones (Negative) Urine Blood (Negative) Urine Nitrite (Negative) Urine Bilirubin (Negative) Urine Urobilinogen (Negative) Ur Leukocyte Esterase (Negative) Urine WBC (Auto) (0-5) /hpf Urine RBC (Auto) (0-2) /hpf U Hyaline Cast (Auto) (0-2) /lpf U Epithel Cells (Auto) (0-2) /hpf Urine Bacteria (Auto) (None Seen) Urine Comment MDM Narrative See ED Course. Impression & Plan Nausea vomiting and diarrhea, Hyperglycemia Discharge Plan Visit Data Chief Complaint: Illness Stated Complaint: VOMITING, ABD PAIN, TYPE 1 DIABETIC ED Provider: Fazal Robles ED Midlevel Provider: Sarah Rao Discharge Problem: Nausea vomiting and diarrhea, Hyperglycemia Patient Disposition: Admitted As Inpatient Condition: Fair Discharge Instructions Interventions: ED Discharge Assessment Last Done: 04/23/25 15:40
[2025-04-23] MEDS: DC HOME INSULIN PUMP STA (11:21)
[2025-04-23 11:22] LABS: Base Excess VBG -0.8 mEq/L; HCO3 VBG 25 mmol/L; Oxygen Saturation VBG < 60.0 %; PCO2 VBG 47 mmHg (38-50); PO2 VBG 31 mmHg; pH VBG 7.34 (7.36-7.41)
[2025-04-23 11:26] LABS: Hematocrit (blood only) 36.5 % (37.0-47.0); Hemoglobin 11.7 g/dl (12.0-16.0); Immature Granulocytes # (auto) 0.06 K/uL (0.01-0.20); Immature Granulocytes % (auto) 0.4 %; Mean Corpuscular Hemoglobin 27.5 pg (25.0-34.0); Mean Corpuscular Volume 85.9 fL (80.0-100.0); Platelet Count 338 K/uL (130-400); RDW Standard Deviation 41.4 fL (36.4-46.3); Red Blood Count 4.25 M/uL (4.20-5.40); White Blood Count 13.46 K/ul (4.8-10.8)
[2025-04-23] MEDS: KETOROLAC TROMETHAMINE 15 MG/ML VIAL IV STA (11:29)
[2025-04-23] MEDS: FAMOTIDINE 20MG IV PUSH 20 MG/5 ML SYR IV STA (11:30)
[2025-04-23] MEDS: ONDANSETRON INJ 2 MG/ML 2 ML VIAL IV STA (11:30)
[2025-04-23 11:43] LABS: Appearance Urine Clear (Clear); Bacteria Urine Automated None Seen (None Seen); Cast Urine Automated 0-2 /lpf (0-2); Epithelial Cell Urine Auto 0-2 /hpf (0-2); Glucose Urine UA 3+ (Negative); RBC Urine Automated >20 /hpf (0-2); WBC Urine Automated 0-5 /hpf (0-5)
[2025-04-23 11:44] LABS: Pregnancy Test, Serum Negative (Negative)
[2025-04-23 11:56] LABS: Alanine Aminotransferase 8 U/L (7-52); Albumin Globulin Ratio 1.2 (0.9-2); Albumin Level 4.2 gm/dl (3.4-5.0); Alkaline Phosphatase 102 U/L (34-104); Anion Gap 7 (3-11); Bilirubin,Total 0.7 mg/dl (0.2-1.0); Blood Urea Nitrogen 11 mg/dl (6-23); Calcium 9.3 mg/dl (8.6-10.3); Carbon Dioxide 26 mmol/L (21-32); Chloride 102 mmol/L (98-107); Creatinine Clr Calc Pharmacy 112.9 ml/min; Globulin 3.5 gm/dl (2.5-4.0); Glucose 309 mg/dl (70-99(Fasting)); Magnesium 1.5 mg/dl (1.7-2.4); Potassium 4.1 mmol/L (3.5-5.1); Sodium 135 mmol/L (136-145); Total Protein 7.7 gm/dl (6.0-8.3)
[2025-04-23] MEDS: SODIUM CHLORIDE 0.9% 1,000 ML IV SCH (12:28)
[2025-04-23 13:25] LABS: Lipase < 3 U/L (11-82)
[2025-04-23] MEDS: PROMETHAZINE 12.5 MG/50.5 ML BAG IV STA (13:38)
[2025-04-23] MEDS: MAGNESIUM SULFATE / D5W 1 GM/100 ML BAG IV STA (13:44)
--- NOTE | 2025-04-23 14:05 | History & Physical Report ---
Date of Service April 23, 2025 Assessment & Plan (1) Nausea & vomiting: (2) Type 1 diabetes mellitus: (3) Acute hyperglycemia: (4) Acute dehydration: Plan: Patient is a 40 y/o F PMHx T1DM with CGM on Novolog and Lantus presented to [facility] [place] ED this morning for nausea and nonbloody, bilious vomiting that started when she woke up at 7am. ED workup completed showing mild leukocytosis WBC 13.46. H&H 11.& 36.5. Electrolytes and kidney function stable. Mag 1.5, repleted with 1g Mg IV. Glucose 309. Urinalysis with glucose 3+, ketone 2+, blood 3+, RBCs >20. Patient is being admitted to medical observation for nausea/vomiting possibly 2/2 gastritis vs UTI/pyelonephritis. #nausea/vomiting/dehydration - unclear of the cause of these symptoms, however could be 2/2 nonspecifitic viral gastritis, however patient reporting dysuria with left abdominal cramping and flank pain which could be concerning for UTI/early developing pyelonephritis. WBC 13.4 with left shift. Patient tachycardic, otherwise normotensive and afebrile - CT abdomen/pelvis with IV and oral contrast ordered - will plan to start rocephin 1g IV q24h empirically for UTI symptoms. Urine culture ordered and pending - received NS bolus in ED, continue with maintenance NS @ 125 ml/hr - continue promethazine 12.5 mg IV q6h prn - zofran 4mg IV q4h prn, compazine 5mg q6h prn for breakthrough N/V - pain control with tylenol 650mg po q4h prn and morphine 4mg IV q4h for severe pain - protonix 40mg IV bid - diet ordered as tolerated, no clear indication to keep patient NPO at this time - serial abdominal exam - daily CBC, BMP #dysuria - urinalysis on admission w/o WBCs, nitrites or leuk esterase, however RBCs >20 and patient having dysuria and flank pain. Slightly leukocytosis with WBC 13.4 with left shift. - urine culture ordered and pending - abx with rocephin as above - trend CBC #acute hyperglycemia - this does not appear to be a DKA picture at this time. Glucose 309 without anion gap. Urine ketones 3+ however nonspecific finding for DKA. Given this, there is no clear indication at this time that would warrant DKA management - continue home insulin management - BSG checks q2h - diet as tolerated above #hypomagnesemia - Mg 1.5 on admission and repleted with mag sulfate IV as above - trend Mag Dispo: will admit to observation. CT ab/pelvis and urine culture are pending which will help guide patient's treatment course given the nonspecific symptoms/presentation. Serial exams. History of Present Illness Chief Complaint: nausea/vomiting Primary Care Provider: DO Caren Sanchezfede Mcwilliams is a 40 y/o F PMHx T1DM with CGM on Novolog and Lantus presented to [facility] [place] ED this morning for nausea and vomiting that started when she woke up at 7am. Vomiting is bilious, non-bloody emesis. Most recent oral intake was spaghetti squash at 2pm yesterday. N/V associated with left lower abdominal cramping which she is associated with her menstrual period that started yesterday, however are worse than her baseline cramps. No recorded fevers at home but patient does report feeling warm with chills. Pain is also reporting left back/flank pain, almost in the area of the abdominal pain on the same side. Denies diarrhea or bloody stool. She is also reporting some dysuria, however no frequency, urgency or gross hematuria. No hx of kidney stones. Denies chest pain, SOB, headache, dizziness, cold/flu-like symptoms. Denies recent sick contacts or travel. 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 Lives at home with her , no safety concerns. No use of alcohol, tobacco/nicotine, or recreational drugs. ED workup completed showing mild leukocytosis WBC 13.46. H&H 11.& 36.5. Electrolytes and kidney function stable. Mag 1.5, repleted with 1g Mg IV. Glucose 309. Urinalysis with glucose 3+, ketone 2+, blood 3+, RBCs >20. Patient is being admitted to medical observation for nausea/vomiting possible DKA possibly 2/2 gastritis vs UTI vs dehydration. Allergies Allergy/AdvReac Type Severity Reaction Status Date / Time No Known Allergies Allergy Verified 12/23/24 12:15 Home Medications Medication Instructions Recorded Confirmed Type glucagon HCl 1 mg solution for 1 mg IM UD PRN Emergency 02/04/21 04/23/25 History injection (Glucagon (HCl) Emergency Kit) blood-glucose sensor (Dexcom G6 #1 ea 03/22/21 09/16/24 Rx Sensor device) naproxen 500 mg tablet 500 mg PO BID PRN pain #14 tabs 05/29/23 04/23/25 Rx pen needle, diabetic 32 gauge x #400 ea 03/17/24 09/16/24 Rx 5/32" (BD Ailin 2nd Gen Pen Needle) insulin glargine 100 unit/mL (3 45 unit (0.45 mL) subcut DAILY #45 08/08/24 04/23/25 Rx mL) subcutaneous pen (Lantus mL Solostar U-100 Insulin) blood sugar diagnostic 04/23/25 04/23/25 History insulin aspart U-100 100 unit/mL 1 sliding scale dose subcut 04/23/25 04/23/25 History (3 mL) subcutaneous pen (Novolog .complex FlexPen U-100 Insulin aspart) Past Med/Surg History Problem List (Updated 04/23/25 @ 16:50 by Sarah Rao) Hyperglycemia (Acute) Nausea vomiting and diarrhea (Acute) Dehydration Candidal vulvovaginitis Vulvar itching De Quervain's tenosynovitis, right Medical History GERD without esophagitis Diabetes type 1, uncontrolled Depression Proliferative diabetic retinopathy associated with type 1 diabetes mellitus Vitamin D deficiency History of HPV infection Benign nevus Bulimia Epidermal inclusion cyst Surgical History S/P section H/O LEEP H/O oral surgery Family History Aunt Breast cancer Maternal Sister Biliary atresia Mother Ovarian cyst Denies family history of Ovarian cancer Prostate cancer Diabetes Myocardial infarction Colorectal cancer Hypertension Social History Smoking Status: Never smoker Tobacco Type: Declines Second Hand Exposure: No; Do You Dip or Chew Tobacco: No; Hx Alcohol Use: Yes Alcohol type: other Alcohol Intake Frequency: Monthly or Less Hx Substance Use: No Preferred Language: Algerian Communication Ability: Effective Visual Impairment: No Limitations Hearing Ability: Normal 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 Beliefs That Will Affect Care: None marital status: marital status details: Jermaine Torres (28) [phone] Current Living Situation: Spouse Current Living Situation Comment: - Jermaine current occupational status: employed 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 How many Children do You have: 1 Other Information That Helps Us Care for You: No Feels Safe at Home: Yes Safety Concerns: Feels Safe At This Time Childhood Exposure to Second-Hand Smoke: No Diet: regular Diet Comment: regular caffeine: No Dental Care, Regularly: Yes Physical Activity Frequency: Does not Exercise Seatbelt Use: sometimes Sunscreen Use: Yes Do you think of yourself as: straight/heterosexual Gender Identity: Female Assistive Devices: None Review of Systems Review of Systems: as per hpi Physical Exam Constitutional: patient pale, nondiaphoretic ill-appearing, no acute distress A&O x3, responding in complete, full sentences ENMT: moist mucus membranes Respiratory: normal respiratory effort, lungs clear to auscultation Cardiovascular: Rate/Rhythm: regular rhythm and + tachycardic Gastrointestinal (Abdomen): abdomen soft, tender in LLQ without guarding or rebound, not distended no CVA tenderness no splenomegaly or hepatomegaly Musculoskeletal: Extremities: extremities normal to inspection Skin: no rashes, warm and dry normal turgor Neurologic: no focal neurological deficits Results & Data Results & Data Vital Signs (Past 12 Hours) Vital Signs Temp Pulse Pulse Resp BP BP Pulse Ox 04/23/25 13:21 99 H 22 100 04/23/25 13:01 116/76 04/23/25 12:51 104 H 17 04/23/25 12:39 94 H 13 100 04/23/25 12:30 117/70 04/23/25 12:30 117/70 04/23/25 12:13 98 H 04/23/25 12:09 102 H 18 100 04/23/25 12:03 103 H 17 99 04/23/25 12:00 121/68 04/23/25 12:00 121/68 04/23/25 11:54 104 H 18 100 04/23/25 11:51 99 H 19 100 04/23/25 11:30 110/69 04/23/25 11:30 110/69 04/23/25 11:30 89 13 100 04/23/25 11:08 128/93 04/23/25 11:06 85 15 04/23/25 11:00 88 14 04/23/25 10:55 97 H 12 128/93 100 04/23/25 10:54 93 H 17 118/62 100 04/23/25 10:39 36.7 C 87 18 125/83 100 O2 Del Method 04/23/25 13:21 04/23/25 13:01 04/23/25 12:51 04/23/25 12:39 04/23/25 12:30 04/23/25 12:30 04/23/25 12:13 04/23/25 12:09 04/23/25 12:03 04/23/25 12:00 04/23/25 12:00 04/23/25 11:54 04/23/25 11:51 04/23/25 11:30 04/23/25 11:30 04/23/25 11:30 04/23/25 11:08 04/23/25 11:06 04/23/25 11:00 04/23/25 10:55 Room Air 04/23/25 10:54 Room Air 04/23/25 10:39 Room Air Code Status & VTE Plan VTE Prophylaxis Plan VTE Prophylaxis will be ordered: No Reason for no VTE drug order: Treatment not indicated Supervising Physician Co-Signing Physician Notes I personally examined the patient and verified all canales points of history and exam, discussed case, and agree with decision making with Dr Sim Nausea vomiting left lower abdominal pain as well as some degree of back pain on the same side. More lower back pain than CVA region. Some dysuria. Feeling feverish at times, although this mostly seems to relate to when she is vomiting. She still feels fairly bad, but with medications and supportive care, she does note feeling better than she did this morning. Vitals noted, in general she appears fatigued and mildly ill. Breathing unlabored no accessory muscle use. Abdomen is soft she does have left mid and lower quadrant tenderness without guarding rebound or rigidity. Her back shows no significant CVA tenderness to percussion, she does have a little bit of reproducible paraspinal tenderness to deep palpation. Labs and diagnostics noted. Nausea/vomiting/abdominal pain/dysuriait could be as simple as a viral enteritis and simple cystitis, but at the same time she certainly appears ill enough that things along the lines of pyelonephritis/ ureterolithiasis are on the differential, and while I doubt she has any kind of infectious colitis picture given her age and nonspecific symptoms, her location of pain and radiation of pain seems to fit more with her colon than anything else. Because of a fairly broad differentialright now managing with IV fluids, antiemetics and supportive care, antibiotics for the dysuria (which right now would be reflective of at least cystitis)and then will get CT abdomen pelvis to help discern differentials. She expresses a good understanding of this. Type 1 diabetesbasal/bolus insulin management. Follow sugars, adjust as needed. DVT prophylaxisambulation. Consider pharmacologic if her hospital stay becomes prolonged or she is weaker and less mobile than I anticipate. (1) Nausea & vomiting Vomiting type: unspecified Qualified Code(s): R11.2 - Nausea with vomiting, unspecified
[2025-04-23] MEDS ORDERED: CARBOHYDRATES FOR HYPOGLYCEMIA PO PRN (16:16)
[2025-04-23] MEDS ORDERED: POLYETHYLENE (MIRALAX) 17 GM PACK PO PRN (16:16)
[2025-04-23] MEDS ORDERED: GLUCAGON FOR INJ 1 MG VIAL SQ PRN (16:16)
[2025-04-23] MEDS ORDERED: GLUCOSE 10 TAB/TUBE PO PRN (16:16)
[2025-04-23] MEDS ORDERED: MELATONIN 3 MG TAB PO PRN (16:16)
[2025-04-23] MEDS ORDERED: GLUCOSE 40% GEL 15 GM TUBE PO PRN (16:16)
[2025-04-23] MEDS ORDERED: INSULIN ASPART 100 UNITS/ML VIAL SC PRN (16:16)
[2025-04-23] MEDS ORDERED: ACETAMINOPHEN 325 MG TAB PO PRN (16:16)
[2025-04-23] MEDS ORDERED: NON-FORMULARY MEDICATION (Insulin Glargine [Lantus Solostar U-100 Insulin] 100 unit/mL (3 subcut SCH (16:16)
[2025-04-23] MEDS ORDERED: PROMETHAZINE 12.5 MG/50.5 ML BAG IV PRN (16:16)
[2025-04-23] MEDS ORDERED: NON-FORMULARY MEDICATION (Blood-Glucose Sensor [Dexcom G6 Sensor] device) SCH (16:16)
[2025-04-23] MEDS ORDERED: DEXTROSE 50% 50 ML SYRINGE IV PRN (16:16)
[2025-04-23] MEDS ORDERED: ONDANSETRON INJ 2 MG/ML 2 ML VIAL IV PRN (16:31)
[2025-04-23] MEDS: INSULIN, Rapid-Acting PUMP SC SCH (16:48)
[2025-04-23] MEDS: Continuous Glucose Monitor SCH (17:03)
[2025-04-23] MEDS: cefTRIAXone SODIUM 1,000 MG/50 ML BAG IV SCH (17:15)
[2025-04-23] MEDS ORDERED: LANTUS PER UNIT CHARGE SQ SCH (17:15)
[2025-04-23] MEDS: MoRPHine SULFATE 2 MG/ML CARP IV PRN (17:24)
[2025-04-23] MEDS: PROCHLORPERAZINE 5 MG in SYRINGE 4 ML IV PRN (17:47)
[2025-04-23] MEDS: SODIUM CHLORIDE 0.9% 500 ML IV SCH (17:48)
--- NOTE | 2025-04-23 18:37 | Billing Data ---
Date of Service April 23, 2025 Coding Level of Care Code 07240 INT INP/OBS CARE
[2025-04-23] MEDS: INSULIN ASPART PER UNIT CHARGE SC SCH (18:46)
[2025-04-23] MEDS: LANTUS PER UNIT CHARGE SC SCH (18:47)
--- NOTE | 2025-04-23 19:22 | Electrocardiogram Report ---
Test Reason : Blood Pressure : */* mmHG Vent. Rate : 98 BPM Atrial Rate : 98 BPM P-R Int : 144 ms QRS Dur : 104 ms QT Int : 374 ms P-R-T Axes : 75 89 54 degrees QTcB Int : 477 ms Normal sinus rhythm Incomplete right bundle branch block Cannot rule out Anterior infarct , age undetermined Abnormal ECG When compared with ECG of 27-Dec-2023 07:10, No significant change was found Confirmed by Bridger Vernon ([id number]) on 04/23/2025 7:22:18 PM Referred By: REFERRED SELF Confirmed By: Bridger Vernon
[2025-04-23] MEDS: OPTIRAY 320 100ml IV ONE (20:16)
--- NOTE | 2025-04-23 21:02 | CT Scan Report ---
Exam(s): CT ABDOMEN + PELVIS With Contrast IV Amt: OPTIRAY 320 94ML EXAM: CT Abdomen and Pelvis With Intravenous Contrast CLINICAL HISTORY: Reason for exam: nausea/vomiting, abdominal and flank pain. TECHNIQUE: Axial computed tomography images of the abdomen and pelvis with intravenous contrast. CTDI is 14.38 mGy and DLP is 737.44 mGy-cm. Automated exposure control was utilized for the study. A dose lowering technique was utilized adhering to the principles of ALARA. CONTRAST: Patient received OPTIRAY 320 94ML of IV contrast COMPARISON: CT abdomen/pelvis on 02/04/2021 FINDINGS: Lung bases: Unremarkable. No mass. No consolidation. ABDOMEN: Liver: Probable hemangioma at the liver dome. Gallbladder and bile ducts: Unremarkable. No calcified stones. No ductal dilation. Pancreas: Atrophy of the pancreas. No ductal dilation. Spleen: Unremarkable. No splenomegaly. Adrenals: Unremarkable. No mass. Kidneys and ureters: 4 mm stone in the distal left ureter near the left UVJ. Mild left hydroureteronephrosis. Left perinephric fluid. Small nonobstructing left renal stones. No hydronephrosis or obstructing ureteral stone on the right. Stomach and bowel: Underdistention of the colon limits evaluation. Prominence of the cope of the colon could be secondary to underdistention versus colitis. No small bowel wall obstruction. PELVIS: Appendix: Normal appendix. Bladder: Decompressed bladder limits evaluation. Please correlate with urinalysis to evaluate for cystitis. Reproductive: Tampon in the vaginal cavity. ABDOMEN and PELVIS: Intraperitoneal space: Unremarkable. No free air. No significant fluid collection. Bones/joints: Old fracture deformity of T12. No dislocation. Soft tissues: Unremarkable. Vasculature: Unremarkable. No abdominal aortic aneurysm. Lymph nodes: Unremarkable. No enlarged lymph nodes. IMPRESSION: 1. 4 mm stone in the distal left ureter near the left UVJ. Mild left hydroureteronephrosis. Left perinephric fluid. Small nonobstructing left renal stones. 2. Underdistention of the colon limits evaluation. Prominence of the cope of the colon could be secondary to underdistention versus colitis. 3. Decompressed bladder limits evaluation. Please correlate with urinalysis to evaluate for cystitis. Electronically signed by: Cristal Gant M.D. 04/23/25 21:01 PM
[2025-04-23] MEDS: PANTOprazole 40 MG/10 ML SYR IV SCH (21:20)
[2025-04-23] MEDS ORDERED: PHENAZOPYRIDINE HCL 100 MG TAB PO PRN (21:36)
[2025-04-24 07:19] VITALS: PULSE 83; RESP 20; TEMP 97.7; O2SAT 97
[2025-04-24 07:35] VITALS: BP 90/53
[2025-04-24] MEDS: TAMSULOSIN HCL 0.4 MG CAP PO SCH (08:10)
--- NOTE | 2025-04-24 10:14 | Urology Consultation ---
<Statement entered by Asher Monroy MD - 04/24/25 11:48> Chart reviewed, imaging reviewed, plan reviewed discussed with petey gooden and agree as written. Date of Consultation April 24, 2025 Assessment & Plan (1) Left ureteral stone: (2) Hydronephrosis: Plan 40yo female admitted with nausea, vomiting, LLQ pain and found to have an obstructing 4mm distal left ureteral stone Afebrile, BP 90/53, HR 83. Non-toxic appearing. Reports some improvement in symptoms/pain this morning. We reviewed her CT findings of an obstructing 4mm distal left ureteral stone. Discussed options for stone management including trial of passage with medical expulsive therapy vs left ureteral stent placement. Stone passage rates given size and location were reviewed. Risks/benefits of each discussed. She has requested trial of passage. Recommend Flomax, hydration, straining all urine. Continue supportive care and pain management as needed. Continue antibiotics and tailor per final culture sensitivities. Urology will follow along - please contact us with any changes in patients clinical status. History of Present Illness Attending Physician: Smith Muniz MD History of Present Illness 40-year-old female with a hx of type 1 diabetes who presented to the ED on 04/23/2025 with complaints of nausea and vomiting and left lower quadrant pain. She is afebrile and hemodynamically stable. Labs showing mild leukocytosis of 13.46 and normal renal function. Urinalysis with 3+ blood, >[address] abdomen pelvis showed a 4 mm distal left ureteral stone near the UVJ with mild left hydronephrosis and additional small nonobstructing left renal stones. Urine culture ordered per notes (not yet pending). She is on Ceftriaxone. Was also started on Flomax. Patient was seen at bedside this morning. She is awake and resting in bed on arrival. No acute distress. Reports feeling better today than yesterday. Reports some mild left lower quadrant/bladder discomfort and urinary urgency. No fevers or chills. No severe pain. Denies any noticeable stone passage. No hematuria. She did have a small amount of breakfast. Denies prior personal hx of stones but reports her mother had stones. Allergies Allergy/AdvReac Type Severity Reaction Status Date / Time No Known Allergies Allergy Verified 12/23/24 12:15 Home Medications Medication Instructions Recorded Confirmed Type glucagon HCl 1 mg solution for 1 mg IM UD PRN Emergency 02/04/21 04/23/25 History injection (Glucagon (HCl) Emergency Kit) blood-glucose sensor (Dexcom G6 #1 ea 03/22/21 09/16/24 Rx Sensor device) naproxen 500 mg tablet 500 mg PO BID PRN pain #14 tabs 05/29/23 04/23/25 Rx pen needle, diabetic 32 gauge x #400 ea 03/17/24 09/16/24 Rx 5/32" (BD Ailin 2nd Gen Pen Needle) insulin glargine 100 unit/mL (3 45 unit (0.45 mL) subcut DAILY #45 08/08/24 04/23/25 Rx mL) subcutaneous pen (Lantus mL Solostar U-100 Insulin) blood sugar diagnostic 04/23/25 04/23/25 History insulin aspart U-100 100 unit/mL 1 sliding scale dose subcut 04/23/25 04/23/25 History (3 mL) subcutaneous pen (Novolog .complex FlexPen U-100 Insulin aspart) Patient History Medical History GERD without esophagitis Diabetes type 1, uncontrolled Depression Proliferative diabetic retinopathy associated with type 1 diabetes mellitus Vitamin D deficiency History of HPV infection Benign nevus Bulimia Epidermal inclusion cyst Surgical History S/P section H/O LEEP H/O oral surgery Family History Aunt Breast cancer Maternal Sister Biliary atresia Mother Ovarian cyst Denies family history of Ovarian cancer Prostate cancer Diabetes Myocardial infarction Colorectal cancer Hypertension Social History Smoking Status: Never smoker Tobacco Type: Declines Second Hand Exposure: No; Do You Dip or Chew Tobacco: No; Hx Alcohol Use: Yes Alcohol type: other Alcohol Intake Frequency: Monthly or Less Hx Substance Use: No Preferred Language: [place] Islander Communication Ability: Effective Visual Impairment: No Limitations Hearing Ability: Normal 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 Beliefs That Will Affect Care: None marital status: marital status details: Jermaine Torres (28) [phone] Current Living Situation: Spouse Current Living Situation Comment: - Jermaine current occupational status: employed 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 How many Children do You have: 1 Other Information That Helps Us Care for You: No Feels Safe at Home: Yes Safety Concerns: Feels Safe At This Time Childhood Exposure to Second-Hand Smoke: No Diet: regular Diet Comment: regular caffeine: No Dental Care, Regularly: Yes Physical Activity Frequency: Does not Exercise Seatbelt Use: sometimes Sunscreen Use: Yes Do you think of yourself as: straight/heterosexual Gender Identity: Female Assistive Devices: None Review of Systems Review of Systems: All systems reviewed & are unremarkable except as noted in HPI & below Physical Exam Constitutional: no acute distress Respiratory: no respiratory distress and no labored breathing Musculoskeletal: Head/Neck/Chest: normocephalic Skin: No visible rashes or lesions to exposed skin areas Neurologic: moves all extremities and awake Psychiatric: A+Ox3, euthymic affect Results & Data Vital Signs (Past 12 Hours) Vital Signs Temp Pulse Resp BP Pulse Ox O2 Del Method 04/24/25 07:35 90/53 L 04/24/25 07:18 36.5 C 83 20 88/53 L 97 Room Air 04/23/25 22:38 36.8 C 95 H 16 105/67 98 Room Air PG Care Time/CCT Total # of Minutes Spent Total Time Spent with Patient: Total time spent is greater than 50% in coordination of care (as documented) at patient's floor/unit and/or counseling patient: Coding Level of Care Code 50078 IN/OBS CONSULT LVL 3,45M Diagnoses Left ureteral stone N20.1 Hydronephrosis N13.30
--- NOTE | 2025-04-24 11:19 | Discharge Summary ---
Discharge Summary Date of Service April 24, 2025 Principal Dx & Hospital Course #1 = Principal Diagnosis (1) Left ureteral stone: (2) Nausea vomiting and diarrhea: Plan Patient is a 40 y/o F PMHx T1DM with CGM on Novolog and Lantus presented to [facility] ED this morning for nausea and nonbloody, bilious vomiting that started when she woke up at 7am. ED workup completed showing mild leukocytosis WBC 13.46. H&H 11.& 36.5. Electro lytes and kidney function stable. Mag 1.5, repleted with 1g Mg IV. Glucose 309. Urinalysis with glucose 3+, ketone 2+, blood 3+, RBCs >20. Patient is being admitted to medical observation for nausea/vomiting possibly 2/2 gastritis vs UTI/pyelonephritis. #nausea/vomiting/dehydration/ureteral stone CTAP: 4mm stone in distal L ureter near L UVJ. Mild left hydroureteronephrosis. left perinephric fluid. small nonobstructing left renal stones. CBC w/ mild leukocytosis of 13.4 on admission. Stable creatinine. Urology consulted: Recommend supportive care & additional of flomax Re-eval 04/24 in AM --> minimal abdominal pain. Discharged home w/ 5 tablets of oxycodone in the event of severe pain and Zofran. (was able to tolerate PO intake prior to dc) Follow up outpatient w/ urology. s/p IV Rocephin --> Abx deferred on discharge secondary to negative UA. #acute hyperglycemia this does not appear to be a DKA picture at this time. Glucose 309 without anion gap. Urine ketones 3+ however nonspecific finding for DKA. continue home insulin management #hypomagnesemia Mg 1.5 on admission and repleted with mag sulfate IV Discharged home 04/24 Admission HPI Per Admitting Provider Coleen Mcwilliams is a 40 y/o F PMHx T1DM with CGM on Novolog and Lantus presented to [facility] ED this morning for nausea and vomiting that started when she woke up at 7am. Vomiting is bilious, non-bloody emesis. Most recent oral intake was spaghetti squash at 2pm yesterday. N/V associated with left lower abdominal cramping which she is associated with her menstrual period that started yesterday, however are worse than her baseline cramps. No recorded fevers at home but patient does report feeling warm with chills. Pain is also reporting left back/flank pain, almost in the area of the abdominal pain on the same side. Denies diarrhea or bloody stool. She is also reporting some dysuria, however no frequency, urgency or gross hematuria. No hx of kidney stones. Denies chest pain, SOB, headache, dizziness, cold/flu-like symptoms. Denies recent sick co ntacts or travel. 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 Lives at home with her , no safety concerns. No use of alcohol, tobacco/nicotine, or recreational drugs. ED workup completed showing mild leukocytosis WBC 13.46. H&H 11.& 36.5. Electrolytes and kidney function stable. Mag 1.5, repleted with 1g Mg IV. Glucose 309. Urinalysis with glucose 3+, ketone 2+, blood 3+, RBCs >20. Patient is being admitted to medical observation for nausea/vomiting possible DKA possibly 2/2 gastritis vs UTI vs dehydration. Discharge Exam General: NAD, VS: BP 90/53; P83; R20; T36.5C Resp: normal respiratory effort Abd: no tenderness to palpation. +BS Extremities: Moves all extremities, no edema Neuro: A&O x3 Skin: intact, no lesions noted Discharge Plan Discharge Items Patient Disposition: Home - Self-Care Reason For Visit: NAUSEA/VOMITING Discharge Diagnosis: Kidney stone Condition on Discharge: Fair Activity: Resume your previous activity Non-emergency contact: Primary Care Provider and Urologist Call non-emergency contact if: you have any medication questions, your symptoms worsen and you have a fever Follow-up/Referrals: Eric Culp DO [Primary Care Provider] - 04/26/25 10:40 am Asher Monroy MD [Physician] - Diet: Regular Addtl Attending Provider Instructions: Ms. Mcwilliams, You were recently hospitalized for nausea, vomiting, and abdominal pain. You were found to have a kidney stone. Your pain did improve and no procedure had to be done while you were here. Medications: Your medication list has been reviewed and reconciled upon discharge to ensure accuracy and continuity of care. An updated list of all your medications is included with your hospital discharge paperwork. Please review this list closely, and make note of any changes. Oxycodone 5mg has been sent to your pharmacy. Please use this for severe pain as needed every 4 hours Zofran 4mg has been sent to your pharmacy. Please use this for nausea and vomiting every 4 hours. Flomax 0.4 mg has been sent to your pharmacy. This can be taken once a day and helps you pass the stone. Your next dose will be 04/25. Please continue on this medication until seen by your PCP. Take your medications as instructed; do not skip a dose of your medicines. Make sure all of your doctors know every medicine you are taking (including iapl-gps-qrbisnt medicines, vitamins, and supplements). Call your primary care provider before taking any new medicines (including over- the-counter medicines, vitamins, and supplements), because some of these may interact with your current medications, or may make your symptoms worse. Tell your primary care provider if you cannot afford your medications. Activity: You can do normal everyday activities as your body allows. Take rest breaks if you feel tired. Do not overexert. Stop activity if you have pain, shortness of breath or feel dizzy. Follow-up appointments: Make an appointment with your primary care physician within one week of discharge. A copy of this summary will be sent to them. Every time you see your primary care physician, or any other doctor, bring your medication list, and a list of questions. Please follow up with urology on an outpatient basis. Their phone number is above if you should have questions or concerns. CONTACT YOUR PRIMARY CARE PROVIDER if you experience any of the following: Shortness of breath or difficulty breathing Fevers or chills Feeling tired with normal activity or experiencing dizziness or fainting Difficulty following your treatment plan, or difficulty taking medications CALL 911 OR GO TO THE EMERGENCY DEPARTMENT if you experience any of the following: Severe abdominal pain or nausea/vomiting Severe chest pain, or chest pain that radiates (moves) to your jaw or arm Sudden, severe shortness of breath or difficulty breathing Thank you for allowing us to participate in your care. Pending Studies at Discharge: No Stand-Alone Forms: My GI Track, Smoking Cessation Medications and DC Order Prescriptions: New tamsulosin 0.4 mg Capsule 0.4 mg PO QAM Qty: 30 0RF ondansetron 4 mg tablet,disintegrating 4 mg PO Q6H PRN (Reason: nausea and vomiting) Qty: 30 0RF oxycodone 5 mg tablet 5 mg PO Q4H PRN (Reason: pain) Qty: 5 0RF Continued insulin glargine [Lantus Solostar U-100 Insulin] 100 unit/mL (3 mL) insulin pen 45 unit subcut DAILY MDD 45 units Qty: 45 3RF Patient Comments: per pharmacist , last filled 02/17/25 naproxen 500 mg tablet 500 mg PO BID PRN (Reason: pain) Qty: 14 1RF Patient Comments: 04/23- otc unable to verify glucagon HCl [Glucagon (HCl) Emergency Kit] 1 mg Recon Soln 1 mg IM UD PRN (Reason: Emergency) Patient Comments: 04/23- no fill history unable to verify insulin aspart U-100 [Novolog FlexPen U-100 Insulin] 100 unit/mL (3 mL) insulin pen 1 sliding scale dose subcut .complex MDD 25 units Patient Comments: 04/23- last filled 12/06 30 day supply Rx Instructions: Inject 1 unit for every 10 grams of carbs ingestion. Inject 1 Unit for every 50 point BS>150. No Action (DME) pen needle, diabetic [BD Ailin 2nd Gen Pen Needle] 32 gauge x 5/32" needle .ROUTE .MEDSUPPLY Qty: 400 1RF Rx Instructions: Inject insulin 4 times a day. DX E11.9 (DME) Dexcom G6 Sensor Device See Rx Instructions .Route Qty: 1 0RF Rx Instructions: As directed (DME) One Touch Test Strip MISCELLANEOUS Rx Instructions: TEST BLOOD SUGAR 4 TIMES A DAY Discharge Orders: Discharge Order (Routine); Ordered 04/24/25 Ordered By: Alaina Nichols/Other Patient Handouts: Understanding Kidney Stones, Treating Kidney Stones: Medicines, Preventing Kidney Stones Admission Data Admit Date/Time: 04/23/25 14:01 Attending Provider: Smith Muniz Admit Provider: Jennifer Sim Primary Care Provider: Eric Culp Other Providers: Issac Gavin; Asher Monroy Other Interventions: Discharge Summary Assessment (RN) Last Done: 04/24/25 12:04 Hospital Stay Data Consultations 04/23/25 13:30 ED Decision to Admit Stat 04/23/25 21:33 Consult Urology Routine Diagnostic Imagining Performed 10/12/25 16:16 CT Abd and Pelvis [CT abd pelvis oral and IV con] Routine Pending Results Patient Have Any Pending Studies at Discharge: No Discharge Instructions Given to Patient (Per Discharging Provider) Ms. Mcwilliams, [place] were recently hospitalized for nausea, vomiting, and abdominal pain. You were found to have a kidney stone. Your pain did improve and no procedure had to be done while you were here. Medications: Your medication list has been reviewed and reconciled upon discharge to ensure accuracy and continuity of care. An updated list of all your medications is included with your hospital discharge paperwork. Please review this list closely, and make note of any changes. Oxycodone 5mg has been sent to your pharmacy. Please use this for severe pain as needed every 4 hours Zofran 4mg has been sent to your pharmacy. Please use this for nausea and vomiting every 4 hours. Flomax 0.4 mg has been sent to your pharmacy. This can be taken once a day and helps you pass the stone. Your next dose will be 04/25. Please continue on this medication until seen by your PCP. Take your medications as instructed; do not skip a dose of your medicines. Make sure all of your doctors know every medicine you are taking (including [id number] medicines, vitamins, and supplements). Call your primary care provider before taking any new medicines (including over- the-counter medicines, vitamins, and supplements), because some of these may interact with your current medications, or may make your symptoms worse. Tell your primary care provider if you cannot afford your medications. Activity: You can do normal everyday activities as your body allows. Take rest breaks if you feel tired. Do not overexert. Stop activity if you have pain, shortness of breath or feel dizzy. Follow-up appointments: Make an appointment with your primary care physician within one week of discharge. A copy of this summary will be sent to them. Every time you see your primary care physician, or any other doctor, bring your medication list, and a list of questions. Please follow up with urology on an outpatient basis. Their phone number is above if you should have questions or concerns. CONTACT YOUR PRIMARY CARE PROVIDER if you experience any of the following: Shortness of breath or difficulty breathing Fevers or chills Feeling tired with normal activity or experiencing dizziness or fainting Difficulty following your treatment plan, or difficulty taking medications CALL 911 OR GO TO THE EMERGENCY DEPARTMENT if you experience any of the following: Severe abdominal pain or nausea/vomiting Severe chest pain, or chest pain that radiates (moves) to your jaw or arm Sudden, severe shortness of breath or difficulty breathing Thank you for allowing us to participate in your care. Supervising Physician Co-Signing Physician Notes The patient was not seen by me. The chart was reviewed. Case discussed with KIRSTEN Jones. Agree with assessment and plan Total Time Total Time Spent Total Time Spent (In Minutes): 45 Total Time Includes: Examination of the Patient, Discharge Planning and Medication Reconciliation Coding Level of Care Code 23459 INP/OBS DISCH >30 MIN Diagnoses Left ureteral stone N20.1 Nausea vomiting and diarrhea R11.2; R19.7
== END 2025-04-24 12:43 | disposition home or self-care (01) ==
LOC: ED 10:26 → 3N 10:26 → SUATTDRO 14:01 → 3N 15:40